=== PATIENT | female | born 1960 | race Caucasian/White ===

== ENCOUNTER → 2016-09-21 | Outpatient (REF) | payer OTHER, BC ==
[2016-09-21 14:17] LABS: ALBUMIN/GLOBULIN RATIO 1.33 (1.00-1.93); ALKALINE PHOSPHATASE 90 U/L (45-117); ALT/SGPT 23 U/L (12-78); ANION GAP 7 MEQ/L (8-16); AST/SGOT 24 U/L (15-37); BILIRUBIN,TOTAL 0.4 MG/DL (0.2-1.0); BLOOD UREA NITROGEN 13 MG/DL (7-18); CALCIUM LEVEL 8.8 MG/DL (8.5-10.1); CARBON DIOXIDE LEVEL 29 MEQ/L (21-32); CHLORIDE LEVEL 107 MEQ/L (98-107); CHOLESTEROL LEVEL 181 MG/DL (<200); CREATININE FOR GFR 0.75 MG/DL (0.55-1.02); GLOMERULAR FILTRATION RATE > 60.0 (>51); GLUCOSE, FASTING 84 MG/DL (70-105); POTASSIUM SERUM 4.2 MEQ/L (3.5-5.1); SODIUM LEVEL 143 MEQ/L (136-145); TRIGLYCERIDES LEVEL 63 MG/DL (<150)
== END ==
LOC: M LABDRAW1 13:30
PROVIDERS: ATTEND Family Medicine
DX: Z13.1 Encounter for screening for diabetes mellitus (principal); Z13.220 Encounter for screening for lipoid disorders

== ENCOUNTER → 2016-12-26 | Outpatient (CLI) | payer BC ==
--- NOTE | 2017-01-15 01:53 | ECWPNPC ---
PATIENT NAME: ORACIO CHAPA : 1960 GENDER: FEMALE VISIT DATE: 12/26/2016 DISCHARGE DATE: 12/26/16 1311 VISIT LOCKED DATE TIME: PHYSICIAN: JAVIER VALDES RESOURCE: JAVIER VALDES REASON FOR APPOINTMENT 1. CHEST WALL HISTORY OF PRESENT ILLNESS NEW PATIENT CONSULT: WHEN DID YOUR PAIN FIRST START? . BRIEFLY DESCRIBE HOW YOUR PAIN STARTED? . HOW DOES YOUR PAIN CHANGE WITH TIME? . DOES YOUR PAIN AWAKEN YOU FROM SLEEP? . HOW MANY HOURS OF SLEEP DO YOU NORMALLY GET? . ANY DIAGNOSTIC TESTING? . FACILITY WHERE TESTS WERE DONE? ____. PAIN TREATMENT TREATMENT YES CANCER HAVE YOU EVER HAD ANY TYPE OF CANCER?NO NO. PAIN SCREENING: PATIENT HAS A COMPLAINT OF ACUTE OR CHRONIC PAIN :YES FALL RISK SCREENING: SCREENING :NO FALLS IN THE PAST YEAR WHITING INVENTORY: QUESTIONNAIRE ASSESSEDYES SCORE VALUE CALCULATED YES SCORE: 18/63. DENIES SUICIDAL OR HOMICIDAL IDEATION TODAY'S VISIT: NOTES: REFERRED BY DR DUNAWAY FOR FURTHER EVAL OF LEFTCHEST WALL AND LOWER EXTREMITY PAIN. HAD SUDDEN ONSET OF PAIN IN LEFT LOWER MARGIN OF RIBS AND THIS HAS SPEAD TO LEFT FLANK AND NOW TO RIGHT HIP AND LEGHAS SENSATION OF TINGLING IN LEFT FOOT AND BALL OF FOOT UNDER GREAT TOE. NO RECENT TRAUMA BUT HAVE FALL YEARS AGO. MOVEMENT COUGHING AGGGREVATES PAIN. CAN PUSH ON AREA WITHOUT PAIN.PAIN IN HIP/SACRUM ALSO AGGREVATED HIP AND LEG PAIN THIS BEGAN FEW MONTHS AGO. SLEEP IS DISRUPTED WITH PAIN FROM MOVEMENT. STAYING ABSOLUTELY STILL WITH HEATING PAD HELPS. HAS HAD NO IMAGING OF SPINE . NO PT. NO ISSUES WITH BOWELS OR BLADDER. . CURRENT MEDICATIONS TAKING NABUMETONE 750 MG TABLET 1 TABLET ORALLY TWICE A DAY TAKING OMEPRAZOLE 20 MG CAPSULE DELAYED RELEASE 1 CAP ORALLY ONCE A DAY TAKING ZYRTEC 10 MG TABLET 1 TABLET ORALLY ONCE A DAY NEEDED DISCONTINUED OCUFLOX 0.3 % SOLUTION 1 DROP INTO AFFECTED EYE OPHTHALMIC FOUR TIMES A DAY DISCONTINUED FLUTICASONE PROPIONATE 50 MCG/ACT SUSPENSION 2 SPRAYS IN EACH NOSTRIL NASALLY ONCE A DAY DISCONTINUED AUGMENTIN 875-125 MG TABLET 1 TABLET ORALLY EVERY 12 HRS DISCONTINUED ALEVE 220 MG TABLET 1 TABLET NEEDED ORALLY EVERY 12 HRS MEDICATION LIST REVIEWED AND RECONCILED WITH THE PATIENT PAST MEDICAL HISTORY OSTEOARTHRITIS ACID REFLUX LEFT PROTRUDING LOWER RIB ALLERGIES N.K.D.A. SURGICAL HISTORY 1983 RIGHT BREAST LUMPECTOMY - BENIGN 2004 TUBAL LIGATION 2005 PARTIAL HYSTERECTOMY 2006 FAMILY HISTORY FATHER: ALIVE 82 YRS MOTHER: , BREAST CANCER SIBLINGS: ALIVE SON(S): ALIVE DAUGHTER(S): ALIVE 1 BROTHER(S) , 3 SISTER(S) - HEALTHY. 2 SON(S) , 1 DAUGHTER(S) - HEALTHY. SOCIAL HISTORY GENERAL: TOBACCO USE ARE YOU A:CURRENT SMOKER HOW MANY CIGARETTES A DAY DO YOU SMOKE?5 OR LESS PATIENT COUNSELED ON THE DANGERS OF TOBACCO USE AND URGED TO QUIT:12/26/2016 ARE YOU INTERESTED IN QUITTING?READY TO QUIT COUNSELED THE PATIENT ON TOBACCO USE, CESSATION [id number]/26/2017 ALCOHOL SCREENING POINTS0 INTERPRETATIONNEGATIVE RECREATIONAL DRUG USE DRUG USE?YES MARIJUANA HOW OFTEN AND HOW MUCH? MONTHLY CAFFEINE CAFFEINE USE?YES HOW OFTEN AND HOW MUCH? LOTS OF TEA EVERY DAY LEARNING BARRIERS / SPECIAL NEEDS BARRIERS TO LEARNING?NO HEARING IMPAIRED?NO VISION IMPAIRED?YES : [place] READINESS TO LEARN?YES LEARNING PREFERENCES?YES SPECIAL DEVICES?NO PAIN CLINIC PFS, CLERGY, PUBLIC HEALTH REFERRALS PFS REFERRAL NEEDED?NO CLERGY REFERRAL NEEDED?NO PUBLIC HEALTH REFERRAL NEEDED?NO WAS THE PROVIDER NOTIFIED OF ANY PERTINENT INFO?NO PATIENT: ____. ADVANCED DIRECTIVES HEALTH CARE PROXY?NO WOULD YOU LIKE MORE INFORMATION?NO HOSPITALIZATION/MAJOR DIAGNOSTIC PROCEDURE DENIES PAST HOSPITALIZATION REVIEW OF SYSTEMS CONSTITUTIONAL: ANY CHANGE IN YOUR MEDICAL CONDITION? NO . CHILLS NO . FEVER NO . INFECTION: DO YOU HAVE NEW INFECTIONS? NO . DO YOU HAVE HISTORY OF MRSA? NO . MUSCULOSKELETAL: ANY NEW PATTERNS OF PAIN OR NUMBNESS? NO . SYTEMIC LUPUS NO . GASTROENTEROLOGY: ANY NEW CHANGE IN BOWEL CONTROL? NO . BARRETTS ESOPHAGUS NO . CIRRHOSIS NO . HEPATITIS NO . LIVER FAILURE NO . ACID REFLUX YES, ON MEDICATION . UNEXPLAINED WEIGHT LOSS NO . GENITOURINARY: ANY NEW CHANGE IN BLADDER CONTROL? NO . IS THERE A CHANCE YOU COULD BE ? NO . HEMATOLOGY/LYMPH: DO YOU TAKE ANY BLOOD THINNERS? (FOR EXAMPLE- COUMADIN, PLAVIX, AGGRENOX, PLATEL, PRADAXA, OR XARELTO) NO . WHEN WAS YOUR LAST DOSE? DATE: TIME: . LOW PLATELET COUNT NO . SICKLE CELL DISEASE NO . VON WILLIEBRANDS NO . FACTOR V LEIDEN NO . THALLASEMIA NO . ANEMIA NO . EASY BRUISING NO . NEUROLOGY: HAVE YOU FALLEN IN THE PAST 6 MONTHS? NO . ANY NEW EXTREMITY NUMBNESS OR WEAKNESS? YES, PINKY FINGERS FEEL COLD, AND LEFT FOOT TINGLING AT TIMES. . HEAD INJURY NO . DEMENTIA NO . CEREBRAL PALSY NO . MULTIPLE SCLEROSIS NO . DIZZINESS NO . HEADACHE NO . STROKES NO . VERTIGO NO . CARDIOLOGY: DO YOU HAVE A PACEMAKER OR DEFIBRILLATOR? NO . ANGINA NO . HEART ATTACK NO . HEART SURGERY NO . CONGESTIVE HEART FAILURE/FLUID OVERLOAD NO . CHEST PAIN NO . HIGH BLOOD PRESSURE NO . IRREGULAR HEART BEAT OCCASIONAL PALP . RESPIRATORY: HAVE YOU BEEN SICK IN THE PAST WEEK? NO . FEVER NO . FLU LIKE SYMPTOMS? NO . CPAP NO . BYPAP NO . ASTHMA NO . EMPHYSEMA NO . CHRONIC LUNG DISEASES NO . SHORTNESS OF BREATH ON EXERTION NO . DO YOU USE ANY TYPE OF TOBACCO (SMOKE, SMOKELESS, CHEW)? YES, IS TRYING TO QUIT. . GENERAL SMALL LESION RIGHT LUNG - TO FOLLOW UP WITH DR GRIER . COUGH INTERMITTANT COUGH. . SNORING NO . INTEGUMENTARY: DO YOU HAVE ANY RASHES OR OPEN SORES? NO . ALLERGIC/IMMUNO: ARE YOU ALLERGIC TO SHELLFISH OR IV DYE? NO . ANY NEW ALLERGIES? NO . PSYCHIATRIC: DO YOU HAVE THOUGHTS OF HURTING YOURSELF OR SOMEONE ELSE? NO . ARE YOU ABUSED, NEGLECTED, OR IN AN UNSAFE ENVIRONMENT? NO . ENDOCRINOLOGY: ARE YOU DIABETIC? NO . THYROID DISORDER NO . OTHER: DO YOU NEED ANY PRESCRIPTIONS? NO . IF YES, PLEASE LIST: ____ . ANY NEW PROBLEMS WITH YOUR MEDICATIONS? NO . WHEN DID YOU LAST EAT? ____ . WHEN DID YOU LAST DRINK? ____ . WHAT DID YOU LAST DRINK? ____ . NAME OF PERSON DRIVING YOU HOME? ____ . DO YOU HAVE ANY OTHER QUESTIONS OR CONCERNS NO . REVIEWED BY: PROVIDER: JAVIER JUAN . VITAL SIGNS WT 112 LBS, HT 63 IN, BMI 19.84 INDEX, BP 133/60 MM HG, HR 62 /MIN, RR 16 /MIN, TEMP 98.3 F, OXYGEN SAT % 97%, NA INITIALS SC 11:42, REVIEWED BY: CM. EXAMINATION GENERAL EXAMINATION: GENERAL APPEARANCE:THIN, PALE. PSYCHALERT , ORIENTED X 3 , APPROPRIATE MOOD AND AFFECT . HEENT:NORMOCEPHALIC, NO LYMPHADENOPATHY, NO THYROMEGLY. CHEST:MINIMAL TENDER OVER LEFT 8TH AND 9TH RIBS FROM SPINE TO STERNUM. = NO RASH/LESIONS. FULL REPIRATORY EXCURSION. LUNGS:CLEAR TO AUSCULTATION BILATERALLY, NO WHEEZES, RALES OR RHONCHI. HEART:HEART RATE REGULAR, NO CAROTOD BRUIT, NORMAL S1S2, NO MURMURS, CLICK OR RUBS. MUSCULOSKELETAL:MUSCLE STRENGTH TESTING 5/5 BILATERAL UPPER AND LOWER EXTREMITIES. POSTURE UPRIGHT. GAIT NON ATALGIC. 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 WITHOUT [id number] [facility] MRI SPINE,THORACIC WITHOUT [id number] NOTES: WILL BE DOING IMAGING OF THORACIC AND LUMBAR SPINE - NEED TO CHECK WITH RADIOLOGY ABOUT ESSURE DEVICE. START PHYSICAL THERAPYTRIAL INVERSION TABLE GO SLOW. TRIAL ICE TO PAINFUL AREAS OF CHEST WALL/SPINE FOR 10-15 MINUTES. OK TO USE USUAL MEDS AND HEAT. CLINICAL NOTES: WE ARE REQUESTING AUTHORIZATION FOR THORACIC AND LUMBAR MRI S WITHOUT CONTTRAST. PT HAS BEEN SUFFERING WITH LEFT RIB PAIN/THORACIC RADICULOPATHY AND NOW PAIN RADIATING FROM LOW BACK TO BUTTUCK AND LEFT FOOT WITH NUMBNESS AND WEAKNESS DISTALLY IN FOOT. SHE HAS BEEN ON NUMEROUS NSAIDS AT THE DIRECTION OF HER PRIMARY CARE PROVIDER FOR MORE THAN 90 DAYS. SHE HAS BEEN TRIALED ON MUSCLES RELAXERS INCLUDING FLEXERIL WITH NO IMPROVEMENT. SHE IS STARTING PHYSICAL THERAPY. 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 WITHOUT [id number] THORACIC RADICULOPATHY [facility] MRI SPINE, L.S. WITHOUT [id number] [facility] SPINE,THORACIC WITHOUT [id number] LUMBAR RADICULOPATHY [facility] MRI SPINE, L.S. WITHOUT [id number] [facility] MRI SPINE,THORACIC WITHOUT [id number] DISPOSITION & COMMUNICATION FOLLOW UP 1 WEEK AFTER IMAGING STUDY DONE, 6 WEEKS ELECTRONICALLY SIGNED BY KRISTI FAIR ON 01/14/2017 AT 01:57 PM EDT DISCLAIMER : THIS IS A VISIT SUMMARY EXTRACTED FROM THE [email or web address] CHART. IT IS NOT A COPY OF THE [email or web address] PROGRESS NOTE. AURORA
== END ==
LOC: M PAIN 11:20
PROVIDERS: ATTEND Nurse Practitioner Family
DX: R07.81 Pleurodynia (principal); M41.50 Other secondary scoliosis, site unspecified; M54.14 Radiculopathy, thoracic region; M54.16 Radiculopathy, lumbar region; F17.200 Nicotine dependence, unspecified, uncomplicated; Z79.899 Other long term (current) drug therapy

== ENCOUNTER → 2017-02-11 | Outpatient (CLI) | payer BC ==
--- NOTE | 2017-03-02 00:10 | ECWPNPC ---
PATIENT NAME: ORACIO CHAPA : 1960 GENDER: FEMALE VISIT DATE: 02/11/2017 DISCHARGE DATE: 02/11/17 0000 VISIT LOCKED DATE TIME: PHYSICIAN: JAVIER VALDES RESOURCE: JAVIER VALDES REASON FOR APPOINTMENT 1. L RIBS HISTORY OF PRESENT ILLNESS HISTORY OF PRESENT ILLNESS: PAIN THE PATIENT DESCRIBES THE PAIN... FALL RISK SCREENING: SCREENING :NO FALLS IN THE PAST YEAR TODAY'S VISIT: NOTES: RETURNS TO CLINIC FOR CONTINUED LEFT RIB PAIN WHICH RAIATES DOWN ENTIRE LEFT SIDE. TO LEVEL OF THE ANKLE. RTES PAIN LEVEL TODAY 8/10. DESCRIBES THE PAIN CONSTANT, ACHING, TENDER, THROBBING, AND SORE. IS CURRENTLY ON NABUMETONE TIMES GREATER THAN 6 WEEKS WITH MINIMAL TO NO EFFECT. PHYSICAL THERAPY HAS BEEN VERY PAINFUL AND SHE IS SEEING LITTLE TO NO IMPROVEMENT. HAS ACHING THROBBING IN LOW BACK AND PELVIS WITH STANDING AND WALKING. HAS WEAKNESS IN LEFY LEG AND DIFF GOING UP STEPS. HAS N/T IN LEFT LEG TO FOOT. . CURRENT MEDICATIONS TAKING OMEPRAZOLE 20 MG CAPSULE DELAYED RELEASE 1 CAP ORALLY ONCE A DAY TAKING NABUMETONE 750 MG TABLET 1 TABLET ORALLY TWICE A DAY TAKING CLARITIN 10 MG TABLET 1 TABLET ORALLY ONCE A DAY NOT-TAKING ZYRTEC 10 MG TABLET 1 TABLET ORALLY ONCE A DAY NEEDED NOT-TAKING SUDAFED 30 MG TABLET 1 TABLET NEEDED ORALLY THREE TIMES DAILY MEDICATION LIST REVIEWED AND RECONCILED WITH THE PATIENT PAST MEDICAL HISTORY OSTEOARTHRITIS ACID REFLUX LEFT PROTRUDING LOWER RIB ALLERGIES N.K.D.A. REVIEW OF SYSTEMS REVIEWED BY: PROVIDER: JAVIER VALDES PHOTOGRAPHY AND PRINTS CURATOR . CONSTITUTIONAL: ANY CHANGE IN YOUR MEDICAL CONDITION? NO . CHILLS NO . FEVER NO . INFECTION: DO YOU HAVE NEW INFECTIONS? NO . DO YOU HAVE HISTORY OF MRSA? NO . MUSCULOSKELETAL: ANY NEW PATTERNS OF PAIN OR NUMBNESS? NO . GASTROENTEROLOGY: ANY NEW CHANGE IN BOWEL CONTROL? NO . GENITOURINARY: ANY NEW CHANGE IN BLADDER CONTROL? NO . IS THERE A CHANCE YOU COULD BE ? NO . HEMATOLOGY/LYMPH: DO YOU TAKE ANY BLOOD THINNERS? (FOR EXAMPLE- COUMADIN, PLAVIX, AGGRENOX, PLATEL, PRADAXA, OR XARELTO) NO . WHEN WAS YOUR LAST DOSE? DATE: TIME: . NEUROLOGY: HAVE YOU FALLEN IN THE PAST 6 MONTHS? NO . ANY NEW EXTREMITY NUMBNESS OR WEAKNESS? NO . CARDIOLOGY: DO YOU HAVE A PACEMAKER OR DEFIBRILLATOR? NO . RESPIRATORY: HAVE YOU BEEN SICK IN THE PAST WEEK? NO . FEVER NO . FLU LIKE SYMPTOMS? NO . COUGH NO . INTEGUMENTARY: DO YOU HAVE ANY RASHES OR OPEN SORES? NO . ALLERGIC/IMMUNO: ARE YOU ALLERGIC TO SHELLFISH OR IV DYE? NO . ANY NEW ALLERGIES? NO . PSYCHIATRIC: DO YOU HAVE THOUGHTS OF HURTING YOURSELF OR SOMEONE ELSE? NO . ARE YOU ABUSED, NEGLECTED, OR IN AN UNSAFE ENVIRONMENT? NO . ENDOCRINOLOGY: ARE YOU DIABETIC? NO . OTHER: DO YOU NEED ANY PRESCRIPTIONS? NO . IF YES, PLEASE LIST: ____ . ANY NEW PROBLEMS WITH YOUR MEDICATIONS? NO . WHEN DID YOU LAST EAT? ____ . WHEN DID YOU LAST DRINK? ____ . WHAT DID YOU LAST DRINK? ____ . NAME OF PERSON DRIVING YOU HOME? ____ . DO YOU HAVE ANY OTHER QUESTIONS OR CONCERNS NO . VITAL SIGNS WT 111.8 LBS, HT 63 IN, BMI 19.80 INDEX, BP 110/66 MM HG, HR 63 /MIN, RR 18 /MIN, TEMP 97.5 F, OXYGEN SAT % 99%, SAFE IN ENV? (Y/N) YES, NA INITIALS PA 09:47, REVIEWED BY: LIONEL. EXAMINATION GENERAL EXAMINATION: PSYCHALERT , ORIENTED X 3 , APPROPRIATE MOOD AND AFFECT . LUNGS:CLEAR TO AUSCULTATION BILATERALLY. HEART:HEART RATE REGULAR. MUSCULOSKELETAL:POINT TENDERNESS OVER THORACIC SPINOUS PROCESSES AND OVER 9-11TH INTER COSTAL SPACES. POINT TENDERNESS OVER LEFT SIJ AND ACROSS LUMBOSACRAL AXIS, LEFT > RIGHT. MUSCLE STRENGTH TESTING 5/5 BILATERAL UPPER AND LOWER EXTREMITIES, GAIT NONANTALGIC. 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 CLINICAL NOTES: WILL REQUEST AGAIN AUTH FOR THORACIC AND LUMBAR MRI TO FURTHER EVAL FOR THORACIC AND LUMBAR NERVE ROOT COMPRESSION LEFT SIDE, PROB DUE TO SCOLIOSIS AND DEGENERATIVE CHANGES. ONCE THIS IS AVAILABLE WILL BE MOVING WITH INTERVENTIONAL TREAT,MENT - THORACIC INCOSTAL BLOCK, AND LUMBAR EPIDURAL INJECTION TREATMENT. PROCEDURE CODES FA211 ESTABILISHED PATIENT LOCATED WITHIN [facility] CHARGE DISPOSITION & COMMUNICATION FOLLOW UP 1 WEEK AFTER MRI (REASON: THORACIC AND BACK PAIN) ELECTRONICALLY SIGNED BY KRISTI FAIR ON 03/01/2017 AT 08:25 AM EDT DISCLAIMER : THIS IS A VISIT SUMMARY EXTRACTED FROM THE [employer] CHART. IT IS NOT A COPY OF THE [employer] PROGRESS NOTE. [facility]UR[facility]
== END ==
LOC: M PAIN 09:20
PROVIDERS: ATTEND Nurse Practitioner Family
DX: R07.81 Pleurodynia (principal); M41.50 Other secondary scoliosis, site unspecified; M54.14 Radiculopathy, thoracic region; M54.16 Radiculopathy, lumbar region; Z79.899 Other long term (current) drug therapy

== ENCOUNTER → 2017-10-04 | Outpatient (REF) | payer BC ==
[2017-10-04 15:10] LABS: INFLUENZA A AMPLIFICATION NEGATIVE (NEGATIVE); INFLUENZA B AMPLIFICATION NEGATIVE (NEGATIVE)
== END ==
LOC: M LAB REF 13:52
DX: J01.00 Acute maxillary sinusitis, unspecified (principal)
CPT/HCPCS: 87502

== ENCOUNTER → 2017-11-15 | Outpatient (REF) | payer BC ==
[2017-11-15 10:47] LABS: BASO # 0.1 10^3/uL (0.0-0.2); BASO % 1.1 % (0.0-1.0); EOS # 0.3 10^3/uL (0.0-0.50); HEMATOCRIT 39.6 % (36.0-47.0); HEMOGLOBIN 13.5 g/dl (12.0-16.0); IMMATURE GRANULOCYTE % 0.4 % (0-3.0); LYMPH # 3.5 10^3/uL (1.5-4.5); LYMPH % 49.1 % (24.0-44.0); MEAN CORPUSCULAR HGB CONC 34.1 g/dl (32.0-36.5); MEAN CORPUSCULAR VOLUME 96.8 fl (80.0-96.0); MONO # 0.4 10^3/uL (0.0-0.8); MONO % 5.6 % (0.0-5.0); NEUTROPHILS # 2.9 10^3/uL (1.8-7.7); NEUTROPHILS % 39.8 % (36.0-66.0); PLATELET COUNT, AUTOMATED 191 10^3/uL (150-450); RED BLOOD COUNT 4.09 10^6/uL (4.00-5.40); RED CELL DISTRIBUTION WIDTH 12.1 % (11.5-14.5); WHITE BLOOD COUNT 7.2 10^3/uL (4.0-10.0)
[2017-11-15 11:01] LABS: ALBUMIN 3.8 GM/DL (3.2-5.2); ALBUMIN/GLOBULIN RATIO 1.41 (1.00-1.93); ALKALINE PHOSPHATASE 108 U/L (45-117); ALT/SGPT 17 U/L (12-78); ANION GAP 5 MEQ/L (8-16); AST/SGOT 12 U/L (7-37); BILIRUBIN,TOTAL 0.4 MG/DL (0.2-1.0); BLOOD UREA NITROGEN 11 MG/DL (7-18); CALCIUM LEVEL 8.4 MG/DL (8.5-10.1); CARBON DIOXIDE LEVEL 30 MEQ/L (21-32); CHLORIDE LEVEL 109 MEQ/L (98-107); CHOLESTEROL LEVEL 142 MG/DL (<200); CHOLESTEROL RISK RATIO 2.535 (<5); CREATININE FOR GFR 0.73 MG/DL (0.55-1.30); FREE T4 0.73 NG/DL (0.76-1.46); GLOMERULAR FILTRATION RATE > 60.0 (>51); GLUCOSE, FASTING 86 MG/DL (70-100); HDL CHOLESTEROL 56 MG/DL (>40); LDL CHOLESTEROL 74.6 MG/DL (<100); NON-HDL-C 86 MG/DL; POTASSIUM SERUM 4.4 MEQ/L (3.5-5.1); SODIUM LEVEL 144 MEQ/L (136-145); THYROID STIMULATING HORMONE 0.677 uIU/ML (0.358-3.740); TOTAL PROTEIN 6.5 GM/DL (6.4-8.2); TRIGLYCERIDES LEVEL 57 MG/DL (<150)
== END ==
LOC: M LABDRAW1 08:06
DX: Z13.29 Encounter for screening for other suspected endocrine disorder (principal); Z13.0 Encounter for screening for diseases of the blood and blood-forming organs and certain disorders involving the immune mechanism; Z13.220 Encounter for screening for lipoid disorders
CPT/HCPCS: 84443

== ENCOUNTER → 2018-01-14 | Outpatient (CLI) | payer BC ==
[2018-01-14 13:40] LABS: CONTROL LINE MONO INT CTR LINE PRESENT; MONO SCRN NEGATIVE (NEGATIVE)
[2018-01-14 13:41] LABS: BASO # 0.1 10^3/uL (0.0-0.2); BASO % 0.7 % (0.0-1.0); EOS # 0.2 10^3/uL (0.0-0.50); EOS % 1.6 % (0.0-3.0); HEMATOCRIT 44.7 % (36.0-47.0); HEMOGLOBIN 15.2 g/dl (12.0-15.5); IMMATURE GRANULOCYTE % 0.3 % (0-3.0); LYMPH # 3.9 10^3/uL (1.5-4.5); LYMPH % 38.7 % (24.0-44.0); MEAN CORPUSCULAR HEMOGLOBIN 32.8 pg (27.0-33.0); MEAN CORPUSCULAR VOLUME 96.3 fl (80.0-96.0); MONO # 0.4 10^3/uL (0.0-0.8); MONO % 4.3 % (0.0-5.0); NEUTROPHILS # 5.6 10^3/uL (1.8-7.7); NEUTROPHILS % 54.4 % (36.0-66.0); PLATELET COUNT, AUTOMATED 211 10^3/uL (150-450); RED BLOOD COUNT 4.64 10^6/uL (4.00-5.40); RED CELL DISTRIBUTION WIDTH 12.2 % (11.5-14.5); WHITE BLOOD COUNT 10.2 10^3/uL (4.0-10.0)
[2018-01-14 13:53] LABS: ALBUMIN 4.5 GM/DL (3.2-5.2); ALBUMIN/GLOBULIN RATIO 1.41 (1.00-1.93); ALKALINE PHOSPHATASE 114 U/L (45-117); ALT/SGPT 22 U/L (12-78); ANION GAP 7 MEQ/L (8-16); AST/SGOT 21 U/L (7-37); BILIRUBIN,TOTAL 0.6 MG/DL (0.2-1.0); BLOOD UREA NITROGEN 6 MG/DL (7-18); CALCIUM LEVEL 9.5 MG/DL (8.5-10.1); CARBON DIOXIDE LEVEL 27 MEQ/L (21-32); CHLORIDE LEVEL 109 MEQ/L (98-107); CREATININE FOR GFR 0.75 MG/DL (0.55-1.30); GLOMERULAR FILTRATION RATE > 60.0 (>51); GLUCOSE, FASTING 94 MG/DL (70-100); POTASSIUM SERUM 4.1 MEQ/L (3.5-5.1); SODIUM LEVEL 143 MEQ/L (136-145); TOTAL PROTEIN 7.7 GM/DL (6.4-8.2)
[2018-01-16 00:08] LABS: Lyme Disease IgG/IgM Antibodie <0.91 ISR (0.00-0.90); Lyme Disease IgM Ab Quantitati <0.80 index (0.00-0.79)
== END ==
LOC: M SMT 10:12
DX: R53.83 Other fatigue (principal)
CPT/HCPCS: 80053

== ENCOUNTER → 2018-12-30 | Outpatient (CLI) | payer BC ==
--- NOTE | 2019-01-01 14:46 | REP ---
REASON: Followup single pulmonary nodule. COMPARISON: 05/02/2016 After he intravenous administration of 9.4 millicuries of FDG18, triplane, whole body PET/CT was performed from the skull base to the mid thigh. Comparison chest CT low dose screening CT of 11/06/2018 was also reviewed. The 1 cm sized nodule seen in the right lung upper lobe shows no evidence of abnormal hypermetabolic activity. The maximal SUV value of this nodule is 1.4. There is no abnormal hypermetabolic activity seen in the neck, chest, abdomen, or pelvis. IMPRESSION: No abnormal hypermetabolic activity. Negative CT/PET. Electronically Signed by Lele Khalil DO 01/01/2019 06:56 P
== END ==
LOC: M PLARAD 08:22
PROVIDERS: ATTEND Internal Medicine Pulmonary Disease
DX: R91.1 Solitary pulmonary nodule (principal)
CPT/HCPCS: 78815; A9552

== ENCOUNTER → 2020-06-08 | Outpatient (CLI) | payer OTHER ==
--- NOTE | 2020-06-13 14:09 | REP ---
CT CHEST WITHOUT CONTRAST HISTORY: Solitary pulmonary nodule. COMPARISON: Chest CT studies include the most recent prior study of 02/11/2020 and the most remote, which is dated 03/13/2016. CT studies have shown a gradually enlarging part solid right middle lobe nodule. CT FINDINGS: The previously noted part solid, part non-solid, spiculated nodule in the right middle lobe is again seen. This is actually best displayed on sagittal multiplanar reformation images where it demonstrates a maximum diameter in the anteroposterior dimension of 1.7 cm. it is abutting the minor fissure along its superior border. It contains air bronchograms and is felt to be suggestive of an adenocarcinoma. There is linear fibrosis in the left base. No other pulmonary nodule is appreciated. No endobronchial abnormality is observed. There are stable normal appearing mediastinal lymph nodes. Mild vascular calcification is observed. No pleural or pericardial effusion is seen. No adrenal mass lesion is observed. The visualized upper abdominal structures are unremarkable. No bony destructive lesion. IMPRESSION: 17 mm somewhat spiculated part solid right middle lobe nodule is again seen having gradually enlarged since the 2016 prior study. MTDD
== END ==
LOC: M RAD 06:52
PROVIDERS: ATTEND Internal Medicine Pulmonary Disease
DX: R91.1 Solitary pulmonary nodule (principal)

== ENCOUNTER → 2020-08-16 | Outpatient (CLI) | payer OTHER ==
--- NOTE | 2020-08-17 07:47 | REP ---
INDICATION: DIAGNOSING LUNG NODULE R91.1. COMPARISON: Comparison PET-CT studies are from December 30, 2018 and May 02, 2016.. Comparison CT study of the chest is from June 08, 2020. TECHNIQUE: Sixty minutes following the intravenous injection of a 8.83 mCi dose of F-18 FDG, three-dimensional PET scintigraphy is acquired from the skull base to the proximal thighs. Triplanar noncontrast CT scanning is acquired through the same anatomic range for attenuation correction, and image registration with scan parameters optimized to minimize radiation exposure to the patient. PET scintigraphy and CT datasets were fused and displayed on a workstation with multiplanar and projection display capability. FINDINGS: In the head and neck soft tissues, there are multiple foci of normal variant metabolically active fatty tissue in the supraclavicular, axillary, and posterior and superior intercostal regions bilaterally and symmetrically. This brown fat activity is normal variant. There is no evidence of adenopathy or pathologic focus of metabolic activity in the head and neck. The right middle lobe nodule which has been gradually enlarging is again seen. It is more metabolically active, now mildly hypermetabolic. Its maximum standard uptake value is 3.58 today. 8.8 on the December 30, 2018 PET-CT study the SUV was 1.39 and on the May 02, 2016 prior PET-CT study the SUV was 0.7. No other abnormal hypermetabolic uptake is seen in the thorax. No hilar or mediastinal hypermetabolic focus is seen. There is no abnormal adrenal uptake. Normal hepatic, splenic, gastrointestinal, and genitourinary FDG accumulation is seen in the abdomen and pelvis. There is a calcified mesenteric lymph node in the right lower quadrant. No abnormal hypermetabolic uptake is seen in the abdomen or pelvis. IMPRESSION: Right middle lobe nodule is now hypermetabolic, SUV 3.58. It has gradually enlarged and is considered suspicious. <Electronically signed by Tj Borrego > 08/17/20 [id number]
== END ==
LOC: M PLARAD 08:15
PROVIDERS: ATTEND Internal Medicine Pulmonary Disease
DX: R91.8 Other nonspecific abnormal finding of lung field (principal)
CPT/HCPCS: 78815; A9552

== ENCOUNTER → 2020-09-09 | Outpatient (CLI) | payer OTHER ==
--- NOTE | 2020-09-09 09:16 | REP ---
INDICATION: SOLITARY PULMONARY NODULE COMPARISON: 06/08/2020, 03/18/2017 TECHNIQUE: Axial noncontrast images from the thoracic inlet to the upper abdomen with coronal and sagittal reformations. This CT examination was performed using the following dose reduction techniques: Automated exposure control, adjustment of mA and/or kv according to the patient's size, and use of iterative reconstruction technique. FINDINGS: Part solid spiculated lesion in the right middle lobe measuring approximately 20 x 10 x 6 mm is essentially unchanged from most recent prior examination although obviously increased in size when compared to 03/21/2017. Remainder of lung johnson are well aerated and without consolidation or further significant nodule/mass lesion. No pleural effusion. No pneumothorax. Tracheobronchial tree is patent. Mildly prominent mediastinal and precarinal lymph nodes are identified which appear relatively stable through 717 although evaluation is limited by the lack of intravenous contrast enhancement. Further evaluation of the mediastinum demonstrates mild atherosclerotic changes to the thoracic aorta and coronary arteries without aortic aneurysm or cardiomegaly. No pericardial effusion. Surrounding musculoskeletal structures without acute osseous abnormality. Limited upper abdomen demonstrates normal adrenal glands. IMPRESSION: The right middle lobe part solid lesion with mild surrounding spiculation is relatively unchanged compared to most recent prior examination but has obviously increased from 03/21/2017. No further mediastinal or pleuroparenchymal process or abnormality identified. <Electronically signed by Stalin Orozco > 09/09/20 [id number]
== END ==
LOC: M RAD 07:58
PROVIDERS: ATTEND Internal Medicine Pulmonary Disease
DX: R91.8 Other nonspecific abnormal finding of lung field (principal); I70.0 Atherosclerosis of aorta; I25.10 Atherosclerotic heart disease of native coronary artery without angina pectoris

== ENCOUNTER → 2020-09-21 | Outpatient (CLI) | payer OTHER ==
[~2020-09-21] MED LIST: APAP325T4 PO; THERTAB52 PO
--- NOTE | 2020-09-21 15:18 | ECGEPIP ---
[facility] Test Date: 2020-09-21 Pat Name: ORACIO CHAPA Department: Room: - Gender: Female Statistical Modeler: CRISTAL : 1960 Requested By: STACEY Ryder Order Number: [id number] Reading MD: Kristin Burciaga Measurements Intervals [place] Rate: 66 P: 53 KS: 148 QRS: 98 QRSD: 94 T: 42 QT: 395 QTc: 417 Interpretive Statements SINUS RHYTHM RATE FASTER RIGHT AXIS DEVIATION LPHB INCOMPLETE RIGHT BUNDLE BRANCH BLOCK LEFT aTRIAL ENLARGEMENT ON PRIOR C/W 02/21/15 Electronically Signed on 09-21-2020 15:18:35 EST by Kristin Burciaga
== END ==
LOC: M EKG 11:04
PROVIDERS: ATTEND Anesthesiology
DX: Z01.818 Encounter for other preprocedural examination (principal)

== ENCOUNTER → 2020-09-21 | Outpatient (CLI) | payer OTHER | LOC: M LABSMTC 11:49 | PROVIDERS: ATTEND Anesthesiology | DX: Z01.812 Encounter for preprocedural laboratory examination (principal); Z20.822 Contact with and (suspected) exposure to COVID-19 ==

== ENCOUNTER 2020-09-26 06:10 | Day surgery (SDC) | payer OTHER ==
[~2020-09-26] VITALS: Ht 160 cm; Wt 46.6 kg
[2020-09-26] MEDS ORDERED: EPINEPHrine 1MG/10ML SYRINGE 1.5IN As Ordered ONE (07:07)
[2020-09-26] MEDS ORDERED: CETACAINE SPRAY 5GM As Ordered ONE (07:07)
[2020-09-26] MEDS ORDERED: LIDOCAINE 1% MDV 20ML VIAL As Ordered ONE (07:07)
[2020-09-26] MEDS ORDERED: THROMBIN SOLN 5,000 UNITS VIAL As Ordered ONE (07:07)
[2020-09-26] MEDS ORDERED: LIDOCAINE 4% INJ 5ML AMP As Ordered ONE (07:19)
[2020-09-26] MEDS ORDERED: ALBUTEROL SULFATE 2.5 MG/0.5 ML INH NEB SOLN As Ordered ONE (07:20)
[2020-09-26] MEDS ORDERED: ALBUTEROL SULFATE 2.5 MG/0.5 ML INH NEB SOLN INH ONE (07:45)
[2020-09-26] MEDS ORDERED: LIDOCAINE 4% INJ 5ML AMP INH ONE (07:45)
[2020-09-26] MEDS ORDERED: propofoL 200 MG/20 ML VIAL As Ordered ONE (07:51)
[2020-09-26] MEDS ORDERED: ONDANSETRON 4MG/2ML VIAL As Ordered ONE ×2 (07:51→09:20)
[2020-09-26] MEDS ORDERED: LIDOCAINE 2% 100MG/5ML SDV (FOR ANES.) As Ordered ONE (07:51)
[2020-09-26] MEDS ORDERED: dexameTHASONE 4 MG/ML 1ML VIAL (J1100 PER 1MG) As Ordered ONE (07:51)
[2020-09-26] MEDS ORDERED: ROCURONIUM BROMIDE 50 MG/5 ML VIAL As Ordered ONE (07:51)
[2020-09-26] MEDS ORDERED: fentaNYL 100 MCG/2 ML INJECTION (J3010) As Ordered ONE ×2 (07:51→08:41)
[2020-09-26] MEDS ORDERED: MIDAZOLAM INJ 2MG/2ML VIAL (J2250 PER 1MG) As Ordered ONE (07:51)
[2020-09-26] MEDS ORDERED: SUGAMMADEX SODIUM 500 MG/5 ML VIAL (BRIDION) As Ordered ONE (08:03)
[2020-09-26] MEDS ORDERED: ACETAMINOPHEN 1000MG 100ML IV BTL (OFIRMEV) (J0131 PER 10MG) As Ordered ONE (08:04)
[2020-09-26] MEDS ORDERED: fentaNYL 100 MCG/2 ML INJECTION (J3010) IV PRN (09:30)
[2020-09-26] MEDS ORDERED: ONDANSETRON 4MG/2ML VIAL IV PRN (09:30)
[2020-09-26] MEDS ORDERED: LR 1,000 ML IV SCH (09:30)
[2020-09-26] MEDS ORDERED: oxyCODONE 5MG TAB PO PRN (09:30)
--- NOTE | 2020-09-26 09:56 | RO ---
OPERATIVE NOTE DATE OF OPERATION: 09/26/2020 PREOPERATIVE DIAGNOSIS: Right middle lobe mass. POSTOPERATIVE DIAGNOSIS: Right middle lobe mass. FINDINGS: Hypertrophy of mucous pits and 1 x 1.2 cm subcarinal lymph node. PROCEDURE PERFORMED: Fiberoptic bronchoscopy followed by robotic-assisted navigational bronchoscopy with radial ultrasound and fluoroscopic guidance for biopsies of the right middle lobe and brushing of the right middle lobe and placement of fiducial markers in right middle lobe, followed by endobronchial ultrasound bronchoscopy with needle aspirations of subcarinal lymph node. SURGEON: Tony Wilson DO, [facility] REMEDIATION TECHNICIAN: Kassandra Hein MD ANESTHESIA: DESCRIPTION OF PROCEDURE: The patient was seen and the procedure explained to the patient as well as the possible complications pertaining thereto including but not limited to bleeding, infection, medication reaction, lung collapse and informed consent was obtained. The patient was brought to the operative suite, placed under general anesthetic. When the anesthetic had sufficient time to take effect the bronchoscope was placed in through the endotracheal tube and into the trachea. The robbie was felt to be sharp. The airways of the left and right lung were examined in subsegmental fashion for any evidence of tumor, ulcer, necrosis, vessel engorgement or mucosal irregularity. There was hypertrophy of mucous pits and scattered mucous plugs appreciated. These were suctioned free and the bronchoscope was retracted out through the endotracheal tube. Thereafter, robotic-assisted navigational bronchoscopy was performed. The scope was introduced and directed using navigational imaging to the right middle lobe and thereafter to the area of interest appreciated previously in the periphery of the right middle lobe on CT imaging. The area of interest was approximated and the scope was parked. Thereafter, radial ultrasound was placed through the scope confirming abnormal density approximately 2-3 cm from the distal port of the scope. Thereafter, transbronchial brushes were obtained of this site, these were forwarded to in-room cytology for analysis. Following sufficient specimen sampling biopsy forceps was placed and multiple biopsies were obtained of the area of interest appreciated on CT imaging. When sufficient specimen had been retrieved a fiducial marker was placed at the point of sampling. Scope was slightly adjusted and a second fiducial marker was placed. Thereafter the robotic bronchoscope was removed and the areas were once again lavaged free of any secretions using standard bronchoscope. For the next portion of the procedure an endobronchial ultrasound scope was introduced and the lymph nodes on the right side were inspected. The only lymph node of significant size was that found in subcarinal, it measured approximately 1 x 1.2 cm and the scope was placed into the right main bronchus. Using ultrasound guidance multiple needle aspirations were obtained into the subcarinal lymph node. Samples were forwarded to pathology for analysis. The ultrasound scope was then removed and one last time standard bronchoscopy was performed for lavage of the airways and to remove any blood or secretions. Having done so the bronchoscope was retracted out through the endotracheal tube. The patient tolerated the procedure, suffered no apparent complications and postprocedural chest x-ray will be obtained in the recovery area. [facility]A
--- NOTE | 2020-09-26 10:02 | REP ---
INDICATION: S/P EBUS COMPARISON: None. TECHNIQUE: Portable AP view of the chest FINDINGS: The mediastinum and cardiac silhouette are stable and within normal limits for portable technique. Right lower lobe opacities suggested. No pneumothorax or pleural effusion. Surgical clips in the right mid lung zone noted. IMPRESSION: Right lower lobe opacity. Small surgical clips in the right midlung zone just below the fissure. <Electronically signed by Stalin Orozco > 09/26/20 0958
[2020-09-26] MEDS ORDERED: METOCLOPRAMIDE INJ 10MG/2ML VIAL (J2765 PER 1) As Ordered ONE (10:12)
[2020-09-26 11:00] VITALS: BP 118/56
[2020-09-26] MEDS ORDERED: METOCLOPRAMIDE INJ 10MG/2ML VIAL (J2765 PER 1) IV PRN (11:00)
== END 2020-09-26 11:00 | disposition home or self-care (01) ==
LOC: M SDC 06:10
PROVIDERS: ATTEND Internal Medicine Pulmonary Disease
DX: C34.2 Malignant neoplasm of middle lobe, bronchus or lung (principal); K21.9 Gastro-esophageal reflux disease without esophagitis; R51.9 Headache, unspecified; F17.218 Nicotine dependence, cigarettes, with other nicotine-induced disorders
CPT/HCPCS: 31623; 31626; 31627; 31628; 31652; 71045; 76000; 88104; 88173; 88305; 88342; A4648; C1887; J0131; J1100; J2250; J2405; J2765; J3010; S2900

== ENCOUNTER → 2020-10-07 | Outpatient (CLI) | payer OTHER ==
--- NOTE | 2020-10-07 15:53 | RADONC.CN ---
Radiation Oncology Hx/Consult Radiation Oncology Consult Date of Service: Oct 07, 2020 Pt Identifier Nicole Steele is a 59 year old female former smoker with an incidentally discovered, recently biopsied [id number] stage IA3 NSCLC of the RML, which had steadily grown on serial imaging studies since initial detection in 2015. She is seen today at the request of Dr. Wilson for consideration of SBRT as an alternative to lobectomy. Diagnosis/Treatment History Oncologic History Patient originally presented to her PCP with back pain in 2016 which led to a CT scan which showed a RML subcentimeter nodule. PET-CT on 05/02/16 showed this was not PET-CT avid. Continued CT surveillance was performed with Dr. Wilson following, for several years, indication very slow growth. CT chest from 02/11/20 showed interval growth to 1.6x0.8x0.8 cm. 06/08/20 CT chest was stable compared to immediate prior. 08/16/20 PET-CT showed avidity in the lesion for the first time. She underwent EBUS navigational biopsy on 09/26/20 with pathology revealing a moderately differentiated adenocarcinoma, Level 7 was sampled and negative for malignancy. She subsequently had a surgical consultation with Dr. Juares for lobectomy consideration. Her PFTs from 2017 are good: FVC 2.64 L FEV1 1.53 FEV1/FVC 73% predicted DLCO not done Interval History Nicole is here with her supportive partner. She reports she feels well overall. She has mild COTA, but this is not in any way limiting her ADLs or IADLs. She has no cough, no SOB at rest. She has no CP. She does have chronic back pain which is stable and only intermittently bothersome. Her weight is stable. She has not smoked since her bronchoscopy. She is intending to quit cold turkey. She has 3 kids. She expressed she is not interested in surgery due to possible side effects of pain, and downtime. She wishes to consider alternatives. Past Medical History: GERD Past Surgical History: Hysterectomy Family History: Mother of breast cancer Social History: 40 pack year former smoker, quit attempt in progress. Does not drink alcohol Allergies / Meds Allergies: Coded Allergies: No Known Allergies (Verified , 09/26/20) Home Meds Reported Medications Multivitamin,Therapeutic (Thera-Tabs) 1 Each Tablet, 1 TAB PO DAILY, TAB 09/15/20 Acetaminophen (Acetaminophen) 325 Mg Tablet, 325 MG PO PRN PRN for PAIN, TAB 09/15/20 Review of Systems Constitutional: Denies: Chills, Fever, Night Sweats Eyes: Denies: Pain, Vision change HEENT: Denies: Head Aches, Dysphagia, Sore Throat Skin: Denies: Rash, Lesions, Bruising Pulmonary: Reports: Dyspnea; Denies: Cough, Pleuritic Chest Pain Cardiovascular: Denies: Chest Pain, Palpitations, Edema Gastrointestinal: Denies: Nausea, Vomiting, Abdominal Pain, Diarrhea Genitourinary: Denies: Dysuria, Frequency, Incontinence Hematologic: Denies: Bruising, Petecchia, Enlarged Lymph Nodes Musculoskeletal: Denies: Neck pain, Back pain Neurological: Denies: Weakness, Numbness, Incoordination Psych: Reports: Mood Normal; Denies: Memory Issues, Thoughts of Self Harm Vital Signs Ht 63" Wt 103 lbs BMI 18 T 96.3 P 89 RR 16 BP 103/53 O2 98% Pain 3 back Fatigue 0 General Exam: Positive: Alert, Cooperative, No Acute Distress Eye Exam: Positive: PERRLA, EOMI ENT EXAM: Positive: Mucous membr. moist/pink, Pharynx Normal Neck Exam: Negative: Thyromegaly, Lymphadenopathy Chest Exam: Positive: Normal air movement; Negative: Rales, Rhonchi, Wheezing Heart Exam: Positive: Rate Normal, Regular Rhythm Breast Exam: Negative: Symmetric Bilaterally, Lumps or Masses, Nipple Retraction, Nipple Discharge, Skin Changes, Other Breast Findings Abdomen Exam: Positive: Soft; Negative: Tenderness, Mass Extremity Exam: Negative: Edema, Tenderness Skin Exam: Positive: Nl turgor and temperature; Negative: Rash Neuro Exam: Positive: Normal Gait, Normal Speech, Cranial Nerves 3-12 NL Psych Exam: Positive: Mental status NL, Mood NL, Memory Intact Diagnostic and Laboratory Diagnostic Review Radiologic images, relevant labs and pathology reports were personally reviewed and discussed with Ms. Steele. Assessment and Plan Impression Ms. Steele is a 59 year old female former smoker with an incidentally discovered, recently biopsied [id number] stage IA3 NSCLC of the RML, which had steadily grown on serial imaging studies since initial detection in 2016. She is seen today at the request of Dr. Wilson for consideration of SBRT as an alternative to lobectomy. Stage Stage IA3 [id number] NSCLC of the RML Performance Status ECOG 0 Plan We had an extensive discussion with Ms. Steele regarding the diagnosis at hand and available therapeutic options. With respect to the lesion in question it has demonstrated a slow pattern of radiologic enlargement over many years, the slow growth and development of hypermetabolism on the recent PET-CT prompted biopsy, and mediastinal jeny sampling (the latter was negative). She is very fit and has preserved PFTs. She seems an excellent candidate for lobectomy. I recommended she undergo lobectomy in no uncertain terms. This is the standard of care for stage I NSCLC in an operable patient. The comparative 5 year OS data bear this out consistently and we have no compelling [id number] trial results of lobectomy versus SBRT to alter this paradigm at this time (as a note [facility], which is comparing SBRT to lobectomy in the operable population is ongoing but unavailable outside of the [place] system). The benefit of pathologic staging, which results in upstaging (leading to more effective treatment) in non-trivial percentage of lobectomy patients, and the mitigated risk of in-lobe failure, are inherent in lobectomy, and not in SBRT. She politely declines to consider lobectomy at this time. She is concerned about the side effects and downtime associated with an operation of this magnitude. I explained that if her mind was truly made up against lobectomy, then I would offer her SBRT as an alternative. I would give her 60 Gy in 5 fractions to the lesion with DCA planing approach, and 4DCT/ITV/amplitude-gated treatment del live. I would follow her with serial CT scans. In general there are no firm indications for adjuvant treatment post-SBRT in her case. We discussed the logistics of receiving radiation therapy in detail including the need for a 1-time planning session. We reviewed the side effects of SBRT, including fatigue, 5-8% risk of symptomatic pneumonitis, and chest wall pain. After discussing the risks, benefits and alternatives to radiation therapy, Ms. Steele was amenable to pursuing radiotherapy. All questions were answered to the patient's satisfaction. As her preferences deviate from what Dr. Juares, Dr. Wilson and I recommend as standard of care for her case, I asked her to think about the matter and close the loop with her other specialists prior to proceeding. She stated she is in favor of SBRT based on the information she has been given and would contact her other physicians. We instructed the patient that if there were any questions,concerns or changes in clinical status in the interim to contact us. Recommendations Recommended lobectomy to patient, she is opposed to this Offered SBRT as an alternative, consistent with her preferences, as discussed above She will discuss with her other providers and alert us to her final decision Simulation pending final decision Total time of (36) minutes was spent preparing for the visit (4), obtaining HPI (4), examining the patient (3), reviewing diagnostic tests (7), discussing management options (8), coordinating care (3), and writing this note (7). TANA CHAVIRA MD Oct 07, 2020 15:14
== END ==
LOC: M ONCR 12:57
PROVIDERS: ATTEND General Practice
DX: C34.2 Malignant neoplasm of middle lobe, bronchus or lung (principal); K21.9 Gastro-esophageal reflux disease without esophagitis; Z80.3 Family history of malignant neoplasm of breast; Z87.891 Personal history of nicotine dependence

== ENCOUNTER 2020-10-17 14:01 | Outpatient (RCR) | payer OTHER | END 2020-10-30 | LOC: M ONCR 14:01 | PROVIDERS: ATTEND General Practice | DX: C34.2 Malignant neoplasm of middle lobe, bronchus or lung (principal) ==

== ENCOUNTER → 2020-10-25 | Outpatient (REF) | payer OTHER | LOC: M LAB REF 17:52 | PROVIDERS: ATTEND Physician Assistant | DX: N39.0 Urinary tract infection, site not specified (principal) ==

== ENCOUNTER 2020-11-04 10:43 | Outpatient (RCR) | payer OTHER | END 2020-11-30 | LOC: M ONCR 10:43 | PROVIDERS: ATTEND General Practice | DX: C34.2 Malignant neoplasm of middle lobe, bronchus or lung (principal) ==

== ENCOUNTER → 2020-12-07 | Outpatient (CLI) | payer OTHER ==
[~2020-12-07] MED LIST changes: +PRED20TA PO
--- NOTE | 2020-12-07 16:18 | RADENCPD ---
Date/Time of Encounter Date of Encounter: Dec 07, 2020 Time of Encounter: 16:09 Encounter Nicole came in today for a brief follow up for new onset dry cough and right chest pain. The pain is mild aching extends from the anterior chest laterally, around the side. There is no pleuritic component. No fevers or chills. She is having intermittent hot flashes which predate SBRT for her RML NSCLC. Her cough is dry non-productive and mild in intensity. Aside from these symptoms she is feeling well and doing well. She is not SOB at rest and has minimal COTA. I explained that she may have some radiation pneumonitis. I think chest wall neuropathy is far less likely as her lung lesion did not significantly abut the chest wall. To investigate I will obtain a CXR and if there are no signs of significant infection I will give her empiric prednisone for 10 days, which would be reasonable treatment for any pneumonitis. She agreed and has follow up with me and response assessment CT scans in early January 2021. TANA CHAVIRA MD Dec 07, 2020 16:18
== END ==
LOC: M ONCR 15:22
PROVIDERS: ATTEND General Practice
DX: C34.2 Malignant neoplasm of middle lobe, bronchus or lung (principal)

== ENCOUNTER → 2020-12-07 | Outpatient (CLI) | payer OTHER ==
--- NOTE | 2020-12-08 03:35 | REP ---
INDICATION: COUGH, RT CHEST DISCOMFORT COMPARISON: 09/26/2020 TECHNIQUE: PA and lateral. FINDINGS: The mediastinum and cardiac silhouette are normal. There is a 1 cm density in the right mid lung zone just lateral to the previously placed clips. Remainder lung johnson are clear. No effusion. No pneumothorax. Skeletal structures intact. IMPRESSION: 1 cm density in the right midlung zone. <Electronically signed by Stalin Orozco > 12/08/20 [id number]
== END ==
LOC: M RAD 16:26
PROVIDERS: ATTEND General Practice
DX: C34.2 Malignant neoplasm of middle lobe, bronchus or lung (principal); R91.8 Other nonspecific abnormal finding of lung field

== ENCOUNTER → 2021-02-02 | Outpatient (CLI) | payer OTHER ==
[~2021-02-02] MED LIST changes: +ISOVUE-370 76% 100ML VIAL As Ordered ONE
--- NOTE | 2021-02-02 12:01 | REP ---
INDICATION: LUNG CA COMPARISON: 09/09/2020 TECHNIQUE: Axial contrast enhanced images from the thoracic inlet to the upper abdomen with coronal and sagittal reformations using 75 ml Isovue 370 intravenous contrast material. This CT examination was performed using the following dose reduction techniques: Automated exposure control, adjustment of mA and/or kv according to the patient's size, and use of iterative reconstruction technique. FINDINGS: 2 cm area of density with spiculated margins is again identified along the superior aspect of the right middle lobe which appears more solid than prior examination. Adjacent small surgical clips are noted suggesting interval biopsy. There is obvious increased mediastinal and right hilar adenopathy with lymph nodes measuring up to 2 cm short axis diameter. Remainder of lung johnson are clear and without further consolidation, nodule or mass. No effusion. No pneumothorax. Tracheobronchial tree is patent. IMPRESSION: 2 cm lesion in the right middle lobe with increased mediastinal/hilar adenopathy is consistent with active malignancy. No new lesions, consolidation or effusion noted. <Electronically signed by Stalin Orozco > 02/02/21 [id number]
== END ==
LOC: M RAD 11:26
PROVIDERS: ATTEND General Practice
DX: C34.2 Malignant neoplasm of middle lobe, bronchus or lung (principal)
CPT/HCPCS: 71260; Q9967

== ENCOUNTER → 2021-02-23 | Outpatient (CLI) | payer OTHER ==
[~2021-02-23] MED LIST changes: -ISOVUE-370 76% 100ML VIAL As Ordered ONE
[2021-02-23 08:20] LABS: BASO # 0.1 10^3/uL (0.0-0.2); BASO % 1.3 % (0.0-1.0); EOS # 0.3 10^3/uL (0.0-0.5); EOS % 5.3 % (0.0-3.0); HEMATOCRIT 40.9 % (36.0-47.0); HEMOGLOBIN 13.8 g/dl (12.0-15.5); LYMPH # 2.4 10^3/uL (1.5-5.0); MEAN CORPUSCULAR HEMOGLOBIN 31.7 pg (27.0-33.0); MEAN CORPUSCULAR HGB CONC 33.7 g/dl (32.0-36.5); MONO # 0.7 10^3/uL (0.0-0.8); NEUTROPHILS # 2.7 10^3/uL (1.5-8.5); NEUTROPHILS % 43.8 % (36.0-66.0); PLATELET COUNT, AUTOMATED 233 10^3/uL (150-450); RED BLOOD COUNT 4.35 10^6/uL (4.00-5.40); WHITE BLOOD COUNT 6.3 10^3/uL (4.0-10.0)
--- NOTE | 2021-02-23 09:12 | REP ---
INDICATION: ENCOUNTER FOR SCREENING FOR OTH SUSPECTED ENDOCRINE DISORDER. Clicking sensation of the left lateral ribs. Patient with history of non-small cell lung cancer. COMPARISON: Comparison chest x-ray December 07, 2020.. Comparison chest CT study February 02, 2021. TECHNIQUE: Four views including PA chest. FINDINGS: PA chest radiograph shows 2 fiducial markers in the right perihilar region with some adjacent linear fibrosis. There is slight fullness of the right hilar silhouette on the PA radiograph and this appears a little more prominent. I cannot exclude a enlarged hilar lymph node. Indeed, correlation with the recent chest CT shows adenopathy in this location. There is no evidence of hilar or mediastinal adenopathy on the left. The lungs are otherwise clear. Pleural angles are sharp. Multiple views of the left ribcage show no bony destructive lesion. No rib fracture is seen. IMPRESSION: No acute bony abnormality. Fiducial markers in the right mid lung zone. Increased fullness in the right hilar silhouette. This is consistent with right hilar adenopathy. <Electronically signed by Tj Borrego > 02/23/21 0933
[2021-02-23 10:10] LABS: ALBUMIN 4.2 GM/DL (3.2-5.2); ALT/SGPT 22 U/L (12-78); BILIRUBIN,TOTAL 0.6 MG/DL (0.2-1.0); BLOOD UREA NITROGEN 16 MG/DL (7-18); CALCIUM LEVEL 9.3 MG/DL (8.5-10.1); CARBON DIOXIDE LEVEL 28 MEQ/L (21-32); CHLORIDE LEVEL 108 MEQ/L (98-107); CHOLESTEROL LEVEL 207 MG/DL (<200); CHOLESTEROL RISK RATIO 2.957 (<5); CREATININE FOR GFR 0.76 MG/DL (0.55-1.30); FREE T4 0.73 NG/DL (0.76-1.46); GLOMERULAR FILTRATION RATE > 60.0 (>51); GLUCOSE, FASTING 90 MG/DL (70-100); HDL CHOLESTEROL 70 MG/DL (>40); LDL CHOLESTEROL 124 MG/DL (<100); NON-HDL-C 137 MG/DL; POTASSIUM SERUM 4.3 MEQ/L (3.5-5.1); SODIUM LEVEL 142 MEQ/L (136-145); TOTAL PROTEIN 7.2 GM/DL (6.4-8.2); TRIGLYCERIDES LEVEL 64 MG/DL (<150)
== END ==
LOC: M LAB 07:30
PROVIDERS: ATTEND Family Medicine
DX: R07.81 Pleurodynia (principal); Z13.29 Encounter for screening for other suspected endocrine disorder; Z13.0 Encounter for screening for diseases of the blood and blood-forming organs and certain disorders involving the immune mechanism; Z13.220 Encounter for screening for lipoid disorders

== ENCOUNTER → 2021-03-14 | Outpatient (CLI) | payer OTHER ==
--- NOTE | 2021-03-14 11:29 | REP ---
INDICATION: RESTAGING LUNG CANCER C34.81. Right upper lobe malignancy status post radiation therapy. COMPARISON: Comparison PET-CT study 08/21/2020 and December 30, 2018.. TECHNIQUE: Forty-nine minutes following the intravenous injection of a 9.11 mCi dose of F-18 FDG, three-dimensional PET scintigraphy is acquired from the skull base to the proximal thighs. Triplanar noncontrast CT scanning is acquired through the same anatomic range for attenuation correction, and image registration with scan parameters optimized to minimize radiation exposure to the patient. PET scintigraphy and CT datasets were fused and displayed on a workstation with multiplanar and projection display capability. FINDINGS: In the head and neck soft tissues, there is a hypermetabolic small jeny focus in the right supraclavicular region with maximum standard uptake value 3.68. There is hypermetabolic mediastinal lymphadenopathy. A right superior perivascular lymph node has maximum standard uptake value 4.24. Precarinal adenopathy, 4.18 and AP window adenopathy, 2.78 are present. A subcarinal hypermetabolic jeny focus has maximum standard uptake value 5.17. There is right hilar hypermetabolic adenopathy with maximum SUV value 5.50. There is some linear pleuroparenchymal fibrotic appearing uptake in the right mid lung zone in the region of the previous radiation therapy, maximum SUV value 2.63. This is most consistent with post radiation change. The radiated nodule is no longer hypermetabolic, maximum SUV value 1.62. In the abdomen and pelvis, normal hepatic, splenic, gastrointestinal, and genitourinary FDG distribution is seen. No abnormal adrenal uptake is seen. No abnormal hypermetabolic uptake is seen in the abdomen or pelvis. IMPRESSION: There is evidence of hypermetabolic lymphadenopathy in the chest and right supraclavicular region as above. <Electronically signed by Tj Borrego > 03/14/21 [id number]
== END ==
LOC: M PLARAD 07:30
PROVIDERS: ATTEND General Practice
DX: C34.81 Malignant neoplasm of overlapping sites of right bronchus and lung (principal); Z92.3 Personal history of irradiation; R59.9 Enlarged lymph nodes, unspecified
CPT/HCPCS: 78815; A9552

== ENCOUNTER → 2021-03-20 | Outpatient (CLI) | payer OTHER ==
[~2021-03-20] MED LIST changes: +LIDOCAINE 1% MDV 20ML VIAL As Ordered ONE; +SM A10CA PO; +SODIUM BICARBONATE 8.4% INJ 50MEQ 50 ML VIAL As Ordered ONE
[2021-03-20 10:31] VITALS: BP 146/72
--- NOTE | 2021-03-20 17:32 | REP ---
INDICATION: RT SUPRACLAVICULAR NODE. COMPARISON: None. TECHNIQUE: The procedure was performed by NILSA Todd, under the direct supervision of Dr. Leggett. The risks and benefits of the procedure were explained to the patient and an informed consent was obtained both verbally and written. Directly prior to the start of the procedure a formal time-out was completed in the procedure room. FINDINGS: Using ultrasound guidance the right supraclavicular lymph node was localized. Due to the location of the lymph node it was determined that a fine needle aspiration would be the safest approach. The skin was prepped and draped in a sterile fashion. Four mL of buffered lidocaine was used as a local anesthetic. Using ultrasound guidance a 8 fine needle aspirations were obtained using 25 gauge needles. Four specimens were sent to our lab here, and remaining 4 were sent out in RPMI solution, for further testing. The patient tolerated the procedure well and there were no immediate complications. After the appropriate amount of monitored convalescence the patient was discharged from the department. IMPRESSION: 1. Ultrasound-guided right supraclavicular lymph node fine needle aspiration. <Electronically signed by Aurea Nelson > 03/20/21 1102 <Electronically signed by Fran Leggett > 03/20/21 [id number]
== END ==
LOC: M IRPRO 08:20
PROVIDERS: ATTEND General Practice
DX: C77.0 Secondary and unspecified malignant neoplasm of lymph nodes of head, face and neck (principal); C34.2 Malignant neoplasm of middle lobe, bronchus or lung

== ENCOUNTER 2021-03-29 09:21 | Outpatient (RCR) | payer OTHER ==
[~2021-03-29 09:21] MED LIST changes: +AUGM875T28 PO; +DEXA4TA PO; +FOLI1TAB11 PO; +IBUP-1857 PO; -LIDOCAINE 1% MDV 20ML VIAL As Ordered ONE; -SODIUM BICARBONATE 8.4% INJ 50MEQ 50 ML VIAL As Ordered ONE; +XANA0.25 PO
[2021-03-29] MEDS ORDERED: PROAAER10 INH (11:36)
[2021-04-03] MEDS ORDERED: NYST50SS PO (12:12)
[2021-04-17] MEDS ORDERED: LIDO1CRE42 TOP (08:53)
[2021-04-17] MEDS ORDERED: ONDA-84 PO (10:32)
[2021-04-17] MEDS ORDERED: PROC10TA5 PO (10:32)
[2021-04-21] MEDS ORDERED: FAMO20TA PO ×2 (14:13)
[2021-05-09] MEDS ORDERED: MAGICMW SSP (11:33)
[2021-05-11] MEDS ORDERED: AMOX875T2 PO (11:44)
[2021-05-29] MEDS ORDERED: AMOX500C PO (11:17)
[2021-09-06] MEDS ORDERED: AMOX875T2 (11:32)
[2021-10-13] MEDS ORDERED: FLUTISP (08:57)
[2021-10-13] MEDS ORDERED: LEVO750T13 PO (08:57)
[2021-10-13] MEDS ORDERED: MUCI30TA5 PO (08:57)
[2021-10-13] MEDS ORDERED: CITA20TA7 PO (08:57)
[2021-10-13] MEDS ORDERED: AZEL1SPR3 (08:57)
[2021-10-13] MEDS ORDERED: PROBCAP14 PO (08:58)
[2021-10-13] MEDS ORDERED: PRED10TA2 PO (09:32)
== END 2021-04-01 ==
LOC: M ONCR 09:21
PROVIDERS: ATTEND General Practice
DX: C34.2 Malignant neoplasm of middle lobe, bronchus or lung (principal)

== ENCOUNTER → 2021-04-03 | Outpatient (CLI) | payer OTHER ==
[~2021-04-03] MED LIST changes: +ACETAMINOPHEN 325 MG TAB As Ordered ONE; +AMOX500C PO; +AMOX875T2; +AMOX875T2 PO; +AZEL1SPR3; +CITA20TA7 PO; +FAMO20TA PO; +FLUTISP; +LEVO750T13 PO; +LIDO1CRE42 TOP; +LIDOCAINE 1% MDV 20ML VIAL As Ordered ONE; +MAGICMW SSP; +MIDAZOLAM INJ 2MG/2ML VIAL (J2250 PER 1MG) As Ordered ONE; +MUCI30TA5 PO; +NS 1,000 ML IV SCH; +NYST50SS PO; +ONDA-84 PO; +PRED10TA2 PO; +PROAAER10 INH; +PROBCAP14 PO; +PROC10TA5 PO; +ceFAZolin 2 GM/D5W 50 ML IV BAG (J0690 PER 500MG) As Ordered ONE; +ceFAZolin SOD 2 GM in IV 1 EA IV ONE; +diphenhydrAMINE 50MG/ML VIAL (J1200) As Ordered ONE; +fentaNYL 100 MCG/2 ML INJECTION As Ordered ONE
[2021-04-03 15:00] VITALS: BP 132/73
== END ==
LOC: M IRPRO 11:36
PROVIDERS: ATTEND Radiology Diagnostic Radiology
DX: C34.90 Malignant neoplasm of unspecified part of unspecified bronchus or lung (principal)
CPT/HCPCS: 36561; 99152; 99153; C1769; C1788; C1894; J0690; J1200; J1642; J1644; J2250; J3010

== ENCOUNTER → 2021-04-18 | Outpatient (POV) | payer OTHER ==
[~2021-04-18] VITALS: Ht 162.6 cm; Wt 61.8 kg
[~2021-04-18] MED LIST changes: -ACETAMINOPHEN 325 MG TAB As Ordered ONE; -AMOX500C PO; -AMOX875T2; -AMOX875T2 PO; -AZEL1SPR3; -CITA20TA7 PO; -FLUTISP; -LEVO750T13 PO; -LIDOCAINE 1% MDV 20ML VIAL As Ordered ONE; -MAGICMW SSP; -MIDAZOLAM INJ 2MG/2ML VIAL (J2250 PER 1MG) As Ordered ONE; -MUCI30TA5 PO; -NS 1,000 ML IV SCH; -ONDA-84 PO; +ONDA8TAB10 PO; -PRED10TA2 PO; -PROBCAP14 PO; +PROC10TA4 PO; -PROC10TA5 PO; -ceFAZolin 2 GM/D5W 50 ML IV BAG (J0690 PER 500MG) As Ordered ONE; -ceFAZolin SOD 2 GM in IV 1 EA IV ONE; -diphenhydrAMINE 50MG/ML VIAL (J1200) As Ordered ONE; -fentaNYL 100 MCG/2 ML INJECTION As Ordered ONE
[2021-04-18 10:55] VITALS: BP 138/66
--- NOTE | 2021-04-20 09:08 | IRPN ---
[facility] IR Progress Note IR Progress Note DATE: Apr 18, 2021 FOLLOW-UP: Patient is status post port placement. Patient states she is doing well, no pain, discharge at site fevers or chills. Port has been used without any issues. ON EXAMINATION: Port site appears to be healing well. Steri-Strips are still in place. No redness swelling or discharge at site. IMPRESSION: Doing well status post port placement. No further follow-up scheduled unless initiated by patient and/or referring provider. Thank you for this referral Allergies Coded Allergies: No Known Allergies (Verified , 09/26/20) VS,Fishbone, I+O VS, Fishbone, I+O Vital Signs Date Time Temp Pulse Resp B/P (MAP) Pulse Ox O2 Delivery O2 Flow Rate FiO2 04/18/21 10:55 97.2 66 20 138/66 (90) 97 Room Air CHRISTEN PIERSON MD Apr 20, 2021 09:08
== END ==
LOC: M IRPOV 10:50
PROVIDERS: ATTEND Radiology Diagnostic Radiology
DX: Z45.2 Encounter for adjustment and management of vascular access device (principal)

== ENCOUNTER → 2021-05-02 | Outpatient (RCR) | payer OTHER ==
[~2021-05-02] MED LIST changes: +AMOX500C PO; +AMOX875T2; +AMOX875T2 PO; +MAGICMW SSP; +ONDA-84 PO; -ONDA8TAB10 PO; -PROC10TA4 PO; +PROC10TA5 PO
== END ==
LOC: M ONCR 04-06 08:47
PROVIDERS: ATTEND General Practice
DX: C34.2 Malignant neoplasm of middle lobe, bronchus or lung (principal)

== ENCOUNTER → 2021-05-18 | Outpatient (CLI) | payer OTHER ==
[~2021-05-18] MED LIST changes: -AMOX500C PO; -AMOX875T2; -ONDA-84 PO; +ONDA8TAB10 PO; +PROC10TA4 PO; -PROC10TA5 PO
--- NOTE | 2021-05-18 15:32 | REP ---
INDICATION: PAIN, SWELLING COMPARISON: None. TECHNIQUE: Real time compression and duplex Doppler evaluation of the Right upper extremity deep venous system is performed. FINDINGS: The Right subclavian, jugular, axillary, brachial, basilic and cephalic veins are fully compressible where accessible with transducer pressure, and demonstrate no intraluminal thrombus and normal venous waveforms. There is no evidence of deep venous thrombosis. IMPRESSION: No evidence of deep venous thrombosis of the Right upper extremity deep vein system. No thrombus is visualized surrounding the port catheter. <Electronically signed by Fran Leggett > 05/18/21 [id number]
== END ==
LOC: M RAD 14:28
PROVIDERS: ATTEND General Practice
DX: C34.2 Malignant neoplasm of middle lobe, bronchus or lung (principal)

== ENCOUNTER → 2021-06-01 | Outpatient (RCR) | payer OTHER ==
[~2021-06-01] MED LIST changes: +AMOX500C PO
== END ==
LOC: M ONCR 05-03 10:29
PROVIDERS: ATTEND General Practice
DX: C34.2 Malignant neoplasm of middle lobe, bronchus or lung (principal)

== ENCOUNTER 2021-06-02 10:30 | Outpatient (RCR) | payer OTHER | END 2021-07-02 | LOC: M ONCR 10:30 | PROVIDERS: ATTEND General Practice | DX: C34.2 Malignant neoplasm of middle lobe, bronchus or lung (principal) ==

== ENCOUNTER → 2021-06-06 | Outpatient (CLI) | payer OTHER ==
--- NOTE | 2021-06-06 13:19 | REP ---
INDICATION: RT ARM/NECK PAIN/SWELLING COMPARISON: None. TECHNIQUE: Leggett scale and color Doppler evaluation using linear high frequency transducer. FINDINGS: Ultrasound examination of the right upper extremity deep venous structures including jugular, subclavian, axillary, brachial, basilic and cephalic veins demonstrates normal flow characteristics without evidence for deep venous thrombosis. Contralateral left subclavian vein is patent and normal. IMPRESSION: No evidence for deep venous thrombosis. <Electronically signed by Stalin Orozco > 06/06/21 [id number]
== END ==
LOC: M RAD 12:31
PROVIDERS: ATTEND Internal Medicine Medical Oncology
DX: R22.1 Localized swelling, mass and lump, neck (principal); R22.31 Localized swelling, mass and lump, right upper limb

== ENCOUNTER → 2021-06-23 | Outpatient (CLI) | payer OTHER ==
[~2021-06-23] MED LIST changes: +GASTROGRAFIN SOLUTION 30ML (Q9963) As Ordered ONE; +ISOVUE-370 76% 100ML VIAL As Ordered ONE
--- NOTE | 2021-06-23 11:02 | REP ---
INDICATION: LUNG CA. COMPARISON: 04/05/2010 the only prior TECHNIQUE: Standard helical technique after the intravenous administration of 100 cc Isovue 370 and oral bowel preparatory contrast administration FINDINGS: The liver, gallbladder, spleen, pancreas, adrenal glands, and kidneys are within normal limits. There is an incidental 5 mm sized focal area of decreased density in the interpolar region of the right kidney consistent with a tiny renal cortical cyst. This was visible on the prior CT scan. The abdominal aorta and para-aortic regions are within normal limits. The bowel loops and the mesenteries are within normal limits. There is no evidence of a mass or adenopathy. There is no free fluid or free air. Bone window technique throughout the examination shows the osseous structures to be within normal limits. IMPRESSION: CT findings are within normal limits. <Electronically signed by Lele Khalil > 06/23/21 1059
--- NOTE | 2021-06-23 11:08 | REP ---
INDICATION: LUNG CA COMPARISON: Multiple the latest 02/02/2021 also with contrast TECHNIQUE: Standard helical technique after the intravenous administration of 100 cc Isovue 370 FINDINGS: The mediastinal and hilar adenopathy seen on the prior exam has resolved. The largest mediastinal lymph node seen today has a short axis dimension of 7 mm. There are no pleural or pericardial effusions. The imaged osseous structures are within normal limits. Evaluation of the lung johnson shows significant improvement in the spiculated nodule seen previously in the right middle lobe which previously measured 3 x 0.9 cm maximally in the axial plane and today measures 2 x 0.6 cm maximally measured in the same dimensions. There are fiducial markers status quo. There is a diffuse increase in the interstitial markings in the right upper and middle lobe regions increased somewhat from the prior exam. No new abnormal nodules or masses have developed. IMPRESSION: 1. Adenopathy seen previously has abated as described above. 2. Significant reduction in the size of the spiculated nodule seen in the right middle lobe as described above. 3. Likely postradiation changes as described above. <Electronically signed by Lele Khalil > 06/23/21 [id number]
== END ==
LOC: M RAD 08:31
PROVIDERS: ATTEND Internal Medicine Medical Oncology
DX: C34.90 Malignant neoplasm of unspecified part of unspecified bronchus or lung (principal)
CPT/HCPCS: 71260; 74177; Q9963; Q9967

== ENCOUNTER → 2021-06-28 | Outpatient (CLI) | payer OTHER ==
[~2021-06-28] MED LIST changes: -GASTROGRAFIN SOLUTION 30ML (Q9963) As Ordered ONE; -ISOVUE-370 76% 100ML VIAL As Ordered ONE; +PROHANCE 279.3MG/ML 15ML VIAL As Ordered ONE
--- NOTE | 2021-06-28 11:11 | REPVR ---
PROCEDURE INFORMATION: Exam: MR Head Without and With Contrast Exam date and time: 06/28/2021 9:25 AM Age: 60 years old Clinical indication: Other: Headaches TECHNIQUE: Imaging protocol: MR of the head without and with intravenous contrast. Contrast material: PROHANCE; Contrast volume: 12 ml; Contrast route: INTRAVENOUS (IV); COMPARISON: PET/CT Skull/mid thigh 03/14/2021 8:08 AM FINDINGS: Brain: There are moderate to prominent white matter changes with periventricular, deep, and juxta cortical lesions. Some of these are ovoid and elongated. Differential diagnosis microvascular change, demyelination, infectious or inflammatory processes including Lyme disease, vasculitis, and/or sequela migraine headaches. None of the lesions show contrast enhancement. There is no abnormal leptomeningeal or parenchymal contrast enhancement. Diffusion images are normal. No evidence of acute infarction. No evidence of acute intracranial hemorrhage. No extra-axial fluid collections. Ventricles and cerebrospinal fluid spaces are normal in size and configuration for the patient's age. There is no evidence of mass-effect or midline shift. Flow voids of the [place] and major cerebral vascular structures appear intact. Craniocervical junction appears unremarkable, with normal position of cerebellar tonsils and no evidence of Chiari I malformation. Cerebral ventricles: Normal. No ventriculomegaly. Bones/joints: Unremarkable as visualized. Paranasal sinuses: Normal as visualized. No acute sinusitis. Mastoid air cells: No significant mastoid effusion. Orbital cavity: Unremarkable. Soft tissues: Unremarkable as visualized. IMPRESSION: 1. Nonspecific cerebral white matter changes with differential diagnosis as described. 2. No evidence of acute or chronic hemorrhage, or acute infarct. 3. No evidence of metastatic disease or intracranial mass. Electronically signed by: Funmi Bell On 06/28/2021 11:11:10 AM
== END ==
LOC: M RAD 08:13
PROVIDERS: ATTEND Internal Medicine Medical Oncology
DX: R51.9 Headache, unspecified (principal); C34.90 Malignant neoplasm of unspecified part of unspecified bronchus or lung
CPT/HCPCS: 70553; A9576

== ENCOUNTER → 2021-08-31 | Outpatient (REF) | payer OTHER ==
[~2021-08-31] MED LIST changes: -PROHANCE 279.3MG/ML 15ML VIAL As Ordered ONE
== END ==
LOC: M LAB REF 18:28
PROVIDERS: ATTEND Family Medicine
DX: J01.90 Acute sinusitis, unspecified (principal)

== ENCOUNTER → 2021-09-04 | Outpatient (CLI) | payer OTHER ==
[~2021-09-04] MED LIST changes: +GASTROGRAFIN SOLUTION 30ML (Q9963) As Ordered ONE
--- NOTE | 2021-09-04 20:41 | REP ---
INDICATION: LUNG CA COMPARISON: 06/23/2021 TECHNIQUE: Axial noncontrast images from the thoracic inlet to the upper abdomen with coronal and sagittal reformations. This CT examination was performed using the following dose reduction techniques: Automated exposure control, adjustment of mA and/or kv according to the patient's size, and use of iterative reconstruction technique. FINDINGS: In comparison with prior examination there is very subtle increased density and presence of the linear platelike fibroatelectatic changes within the right mid lung zone surrounding the small surgical clip. While this may represent progressive fibrosis and chronic changes, active pathology/recurrence cannot be excluded. Remainder of the bilateral lung johnson are well aerated and essentially clear. No further consolidation, suspicious nodule or mass. No effusion. No pneumothorax. Tracheobronchial tree is patent. Evaluation of the mediastinum is limited by the lack of contrast and small nonspecific lymph nodes are identified. Thoracic aorta, pulmonary vasculature, and heart/pericardium are stable. [id number] identified with tip in the right atrium. Musculoskeletal structures intact and without acute osseous abnormality. IMPRESSION: There is subtle increase density along the platelike changes in the right mid lung zone in relation to the surgical clip. This may represent progressive fibrosis although active disease including continued malignancy cannot be excluded. Short-term follow-up is recommended. <Electronically signed by Stalin Orozco > 09/04/212036
--- NOTE | 2021-09-04 20:48 | REP ---
INDICATION: LUNG CA COMPARISON: 06/23/2021 TECHNIQUE: Axial noncontrast images from the lung bases to the pubic symphysis with coronal and sagittal reformations. This CT examination was performed using the following dose reduction techniques: Automated exposure control, adjustment of mA and/or kv according to the patient's size, and use of iterative reconstruction technique. FINDINGS: Lung bases are clear. Visualized heart and pericardium normal. Liver, spleen, pancreas, gallbladder, bilateral adrenal glands and kidneys are normal. The enteric system is unremarkable and without obstruction or acute inflammatory process. Normal terminal ileum and appendix identified in the right lower quadrant. Pelvis demonstrates normal bladder and evidence for prior hysterectomy. No ascites. No free air. No adenopathy. No focal inflammatory stranding. Abdominal aorta without aneurysm. Musculoskeletal structures are intact and without acute osseous abnormality. IMPRESSION: No acute abdominopelvic pathology appreciated. No evidence for metastatic disease. <Electronically signed by Stalin Orozco > 09/04/211
== END ==
LOC: M RAD 14:35
PROVIDERS: ATTEND Internal Medicine Hematology & Oncology
DX: C34.90 Malignant neoplasm of unspecified part of unspecified bronchus or lung (principal)
CPT/HCPCS: 71250; 74176; Q9963

== ENCOUNTER → 2021-09-06 | Outpatient (CLI) | payer OTHER ==
[~2021-09-06] MED LIST changes: +AMOX875T2; -GASTROGRAFIN SOLUTION 30ML (Q9963) As Ordered ONE
== END ==
LOC: M ONCR 10:32
PROVIDERS: ATTEND General Practice
DX: C34.2 Malignant neoplasm of middle lobe, bronchus or lung (principal); Z87.891 Personal history of nicotine dependence; Z92.3 Personal history of irradiation; Z92.21 Personal history of antineoplastic chemotherapy; Z79.899 Other long term (current) drug therapy

== ENCOUNTER → 2021-09-13 | Outpatient (REF) | payer OTHER ==
[~2021-09-13] MED LIST changes: +ONDA-84 PO; -ONDA8TAB10 PO; -PROC10TA4 PO; +PROC10TA5 PO
== END ==
LOC: M LAB REF 17:17
PROVIDERS: ATTEND Family Medicine
DX: R10.2 Pelvic and perineal pain (principal)

== ENCOUNTER → 2021-10-04 | Outpatient (REF) | payer OTHER | LOC: M LAB REF 17:04 | PROVIDERS: ATTEND Physician Assistant | DX: J06.9 Acute upper respiratory infection, unspecified (principal) | CPT/HCPCS: 87633; U0003 ==

== ENCOUNTER → 2021-10-11 | Outpatient (CLI) | payer OTHER | LOC: M WUC 08:04 | PROVIDERS: ATTEND Family Medicine | DX: R91.8 Other nonspecific abnormal finding of lung field (principal); R05.2 Subacute cough ==

== ENCOUNTER → 2021-10-13 | Outpatient (CLI) | payer OTHER ==
[~2021-10-13] MED LIST changes: +AZEL1SPR3; +CITA20TA7 PO; +FLUTISP; +ISOVUE-370 76% 100ML VIAL As Ordered ONE; +LEVO750T13 PO; +MUCI30TA5 PO; +PRED10TA2 PO; +PROBCAP14 PO
== END ==
LOC: M RAD 10:30
PROVIDERS: ATTEND Internal Medicine Medical Oncology
DX: R06.02 Shortness of breath (principal); C34.90 Malignant neoplasm of unspecified part of unspecified bronchus or lung

== ENCOUNTER → 2021-11-10 | Outpatient (CLI) | payer OTHER ==
[~2021-11-10] MED LIST changes: +AMOX875T PO; +IBUP200C25 PO; -ISOVUE-370 76% 100ML VIAL As Ordered ONE
== END ==
LOC: M RAD 12:01
PROVIDERS: ATTEND Internal Medicine Medical Oncology
DX: C34.90 Malignant neoplasm of unspecified part of unspecified bronchus or lung (principal)

== ENCOUNTER → 2021-12-06 | Outpatient (CLI) | payer OTHER ==
[~2021-12-06] MED LIST changes: +FLUT1INH2 INH; +SYMB16INH INH; +VENTAER INH
== END ==
LOC: M ONCR 15:20
PROVIDERS: ATTEND General Practice
DX: C34.2 Malignant neoplasm of middle lobe, bronchus or lung (principal); Z79.51 Long term (current) use of inhaled steroids; Z87.891 Personal history of nicotine dependence; Z92.22 Personal history of monoclonal drug therapy; Z92.3 Personal history of irradiation

== ENCOUNTER → 2022-02-22 | Outpatient (CLI) | payer OTHER ==
[~2022-02-22] MED LIST changes: +GASTROGRAFIN SOLUTION 30ML (Q9963) As Ordered ONE; +ISOVUE-370 76% 100ML VIAL As Ordered ONE
== END ==
LOC: M RAD 08:04
PROVIDERS: ATTEND Internal Medicine Medical Oncology
DX: C34.91 Malignant neoplasm of unspecified part of right bronchus or lung (principal); R91.8 Other nonspecific abnormal finding of lung field
CPT/HCPCS: 71260; 74177; Q9963; Q9967

== ENCOUNTER → 2022-03-14 | Outpatient (CLI) | payer OTHER ==
[~2022-03-14] MED LIST changes: -GASTROGRAFIN SOLUTION 30ML (Q9963) As Ordered ONE; -ISOVUE-370 76% 100ML VIAL As Ordered ONE
== END ==
LOC: M ONCR 10:21
PROVIDERS: ATTEND General Practice
DX: C34.2 Malignant neoplasm of middle lobe, bronchus or lung (principal); Z79.51 Long term (current) use of inhaled steroids; Z79.899 Other long term (current) drug therapy; Z87.891 Personal history of nicotine dependence; Z92.25 Personal history of immunosuppression therapy; Z92.21 Personal history of antineoplastic chemotherapy; Z92.3 Personal history of irradiation

== ENCOUNTER → 2022-03-14 | Outpatient (CLI) | payer OTHER | LOC: M RAD 14:24 | PROVIDERS: ATTEND Nurse Practitioner | DX: C34.81 Malignant neoplasm of overlapping sites of right bronchus and lung (principal) ==

== ENCOUNTER → 2022-04-16 | Outpatient (CLI) | payer OTHER ==
[~2022-04-16] MED LIST changes: +LEVO1TAB40 PO; -LEVO750T13 PO
== END ==
LOC: M PLARAD 07:24
PROVIDERS: ATTEND Nurse Practitioner
DX: C34.81 Malignant neoplasm of overlapping sites of right bronchus and lung (principal); K42.9 Umbilical hernia without obstruction or gangrene
CPT/HCPCS: 78815; A9552

== ENCOUNTER → 2022-04-23 | Outpatient (CLI) | payer OTHER ==
[~2022-04-23] MED LIST changes: +CEFD300C41 PO
== END ==
LOC: M RAD 12:18
PROVIDERS: ATTEND Nurse Practitioner
DX: R22.41 Localized swelling, mass and lump, right lower limb (principal)

== ENCOUNTER → 2022-04-23 | Outpatient (CLI) | payer OTHER | LOC: M RAD 12:25 | PROVIDERS: ATTEND Physician Assistant Medical | DX: M79.671 Pain in right foot (principal) ==

== ENCOUNTER → 2022-07-16 | Outpatient (CLI) | payer OTHER | LOC: M WHC 07:42 | PROVIDERS: ATTEND Internal Medicine Medical Oncology | DX: Z12.31 Encounter for screening mammogram for malignant neoplasm of breast (principal) ==

== ENCOUNTER → 2022-07-25 | Outpatient (CLI) | payer OTHER ==
[~2022-07-25] MED LIST changes: +GASTROGRAFIN SOLUTION 30ML As Ordered ONE; +ISOVUE-370 76% 100ML VIAL As Ordered ONE
== END ==
LOC: M RAD 09:30
PROVIDERS: ATTEND Internal Medicine Medical Oncology
DX: C34.90 Malignant neoplasm of unspecified part of unspecified bronchus or lung (principal); I25.10 Atherosclerotic heart disease of native coronary artery without angina pectoris; I70.0 Atherosclerosis of aorta

== ENCOUNTER → 2022-09-14 | Outpatient (CLI) | payer OTHER ==
[~2022-09-14] MED LIST changes: -GASTROGRAFIN SOLUTION 30ML As Ordered ONE; -ISOVUE-370 76% 100ML VIAL As Ordered ONE; +LEVO25TA5 PO; +NYST-38 PO; -NYST50SS PO
== END ==
LOC: M ONCR 10:10
PROVIDERS: ATTEND Radiology Radiation Oncology
DX: C34.2 Malignant neoplasm of middle lobe, bronchus or lung (principal); Z79.890 Hormone replacement therapy; Z87.891 Personal history of nicotine dependence; Z92.3 Personal history of irradiation

== ENCOUNTER → 2022-09-28 | Outpatient (CLI) | payer OTHER | LOC: M PLAIMG 10:09 | PROVIDERS: ATTEND Family Medicine | DX: J32.9 Chronic sinusitis, unspecified (principal) ==

== ENCOUNTER → 2022-12-15 | Outpatient (REF) | payer OTHER ==
[~2022-12-15] MED LIST changes: +FLUT50SP17; -FLUTISP
== END ==
LOC: M LAB REF 12:22
PROVIDERS: ATTEND Physician Assistant Medical
DX: J02.9 Acute pharyngitis, unspecified (principal)

== ENCOUNTER → 2022-12-24 | Outpatient (CLI) | payer OTHER | LOC: M RAD 09:50 | PROVIDERS: ATTEND Internal Medicine Medical Oncology | DX: R22.1 Localized swelling, mass and lump, neck (principal) ==

== ENCOUNTER → 2023-01-07 | Outpatient (CLI) | payer OTHER ==
[~2023-01-07] MED LIST changes: +GASTROGRAFIN SOLUTION 30ML As Ordered ONE; +ISOVUE-370 76% 100ML VIAL As Ordered ONE
== END ==
LOC: M RAD 06:44
PROVIDERS: ATTEND Internal Medicine Medical Oncology
DX: C34.90 Malignant neoplasm of unspecified part of unspecified bronchus or lung (principal)
CPT/HCPCS: 71260; 74177; Q9963; Q9967

== ENCOUNTER → 2023-02-08 | Outpatient (CLI) | payer OTHER ==
[~2023-02-08] MED LIST changes: -GASTROGRAFIN SOLUTION 30ML As Ordered ONE; -ISOVUE-370 76% 100ML VIAL As Ordered ONE
== END ==
LOC: M RAD 06:23
PROVIDERS: ATTEND Internal Medicine Medical Oncology
DX: C34.90 Malignant neoplasm of unspecified part of unspecified bronchus or lung (principal)

== ENCOUNTER → 2023-03-13 | Outpatient (CLI) | payer OTHER ==
[~2023-03-13] MED LIST changes: -LIDO1CRE42 TOP; +LIDO30CR18 TOP
== END ==
LOC: M ONCR 10:03
PROVIDERS: ATTEND General Practice
DX: C34.2 Malignant neoplasm of middle lobe, bronchus or lung (principal); D37.030 Neoplasm of uncertain behavior of the parotid salivary glands; M79.605 Pain in left leg; Z71.2 Person consulting for explanation of examination or test findings; Z79.890 Hormone replacement therapy; Z79.899 Other long term (current) drug therapy; Z87.891 Personal history of nicotine dependence; Z92.21 Personal history of antineoplastic chemotherapy; Z92.3 Personal history of irradiation

== ENCOUNTER → 2023-03-14 | Outpatient (CLI) | payer OTHER | LOC: M RAD 12:01 | PROVIDERS: ATTEND Family Medicine | DX: M79.605 Pain in left leg (principal) ==

== ENCOUNTER → 2023-04-09 | Outpatient (CLI) | payer OTHER | LOC: M PLARAD 11:49 | PROVIDERS: ATTEND Nurse Practitioner | DX: C34.81 Malignant neoplasm of overlapping sites of right bronchus and lung (principal) | CPT/HCPCS: 78815; A9552 ==

== ENCOUNTER → 2023-04-12 | Outpatient (CLI) | payer OTHER | LOC: M ONCR 10:50 | PROVIDERS: ATTEND General Practice | DX: C34.2 Malignant neoplasm of middle lobe, bronchus or lung (principal); Z71.2 Person consulting for explanation of examination or test findings ==

== ENCOUNTER → 2023-05-17 | Outpatient (CLI) | payer OTHER ==
[~2023-05-17] MED LIST changes: +ISOVUE-370 76% 100ML VIAL As Ordered ONE
== END ==
LOC: M RAD 13:05
PROVIDERS: ATTEND Otolaryngology
DX: R59.0 Localized enlarged lymph nodes (principal)
CPT/HCPCS: 70491; Q9967

== ENCOUNTER → 2023-07-18 | Outpatient (CLI) | payer OTHER ==
[~2023-07-18] MED LIST changes: -CEFD300C41 PO; +CEFD300C42 PO; +FLU60SYR IM; -ISOVUE-370 76% 100ML VIAL As Ordered ONE; +PROHANCE 279.3MG/ML 15ML VIAL As Ordered ONE; +RSV120VI IM
== END ==
LOC: M RAD 10:24
PROVIDERS: ATTEND Internal Medicine Medical Oncology
DX: C34.90 Malignant neoplasm of unspecified part of unspecified bronchus or lung (principal); R51.9 Headache, unspecified
CPT/HCPCS: 70553; A9576

== ENCOUNTER → 2023-08-19 | Outpatient (REF) | payer OTHER ==
[~2023-08-19] MED LIST changes: +CEFD1CAP9 PO; -CEFD300C42 PO; -FLUT50SP17; +FLUTISP; +OXYC-517 PO; -PROHANCE 279.3MG/ML 15ML VIAL As Ordered ONE
[2023-08-19 16:45] LABS: CLOSTRIDIUM DIFFICILE PCR NEGATIVE (NEGATIVE)
== END ==
LOC: M LAB REF 14:42
PROVIDERS: ATTEND Internal Medicine Medical Oncology
DX: K92.9 Disease of digestive system, unspecified (principal)

== ENCOUNTER → 2023-08-28 | Outpatient (CLI) | payer OTHER ==
[~2023-08-28] MED LIST changes: +ISOVUE-370 76% 100ML VIAL As Ordered ONE
== END ==
LOC: M RAD 08:24
PROVIDERS: ATTEND Internal Medicine Medical Oncology
DX: C34.90 Malignant neoplasm of unspecified part of unspecified bronchus or lung (principal)
CPT/HCPCS: 70491; 71260; Q9967

== ENCOUNTER → 2023-09-13 | Outpatient (CLI) | payer OTHER ==
[~2023-09-13] MED LIST changes: -ISOVUE-370 76% 100ML VIAL As Ordered ONE; +PROA1AER2 INH
== END ==
LOC: M ONCR 10:11
PROVIDERS: ATTEND General Practice
DX: C34.2 Malignant neoplasm of middle lobe, bronchus or lung (principal); C77.0 Secondary and unspecified malignant neoplasm of lymph nodes of head, face and neck; Z71.2 Person consulting for explanation of examination or test findings; Z79.890 Hormone replacement therapy; Z79.891 Long term (current) use of opiate analgesic; Z79.899 Other long term (current) drug therapy; Z87.891 Personal history of nicotine dependence; Z92.21 Personal history of antineoplastic chemotherapy; Z92.3 Personal history of irradiation

== ENCOUNTER → 2023-09-19 | Outpatient (CLI) | payer OTHER | LOC: M WHC 09:22 | PROVIDERS: ATTEND Internal Medicine Medical Oncology | DX: Z12.31 Encounter for screening mammogram for malignant neoplasm of breast (principal); R92.323 Mammographic fibroglandular density, bilateral breasts; C34.90 Malignant neoplasm of unspecified part of unspecified bronchus or lung ==

== ENCOUNTER → 2023-09-24 | Outpatient (CLI) | payer OTHER | LOC: M RAD 14:52 | PROVIDERS: ATTEND Internal Medicine Medical Oncology | DX: R22.1 Localized swelling, mass and lump, neck (principal); Z85.118 Personal history of other malignant neoplasm of bronchus and lung ==

== ENCOUNTER → 2023-10-14 | Outpatient (CLI) | payer OTHER | LOC: M EKG 10:42 | PROVIDERS: ATTEND Internal Medicine Medical Oncology | DX: C34.90 Malignant neoplasm of unspecified part of unspecified bronchus or lung (principal); I45.10 Unspecified right bundle-branch block ==

== ENCOUNTER → 2023-11-24 | Outpatient (CLI) | payer OTHER ==
[~2023-11-24] MED LIST changes: +AZIT-12 PO
[2023-11-24 12:12] LABS: BASO % 0.7 % (0.0-1.0); EOS # 0.2 10^3/uL (0.0-0.5); HEMATOCRIT 39.1 % (36.0-47.0); HEMOGLOBIN 13.5 g/dl (12.0-15.5); LYMPH # 1.3 10^3/uL (1.5-5.0); LYMPH % 29.8 % (24.0-44.0); MEAN CORPUSCULAR HEMOGLOBIN 34.5 pg (27.0-33.0); MEAN CORPUSCULAR HGB CONC 34.5 g/dl (32.0-36.5); MONO # 0.4 10^3/uL (0.0-0.8); MONO % 10.2 % (2.0-8.0); NEUTROPHILS # 2.3 10^3/uL (1.5-8.5); NEUTROPHILS % 55.1 % (36.0-66.0); PLATELET COUNT, AUTOMATED 161 10^3/uL (150-450); RED BLOOD COUNT 3.91 10^6/uL (4.00-5.40); WHITE BLOOD COUNT 4.2 10^3/uL (4.0-10.0)
[2023-11-24 12:14] LABS: APPEARANCE, URINE CLEAR (CLEAR); BACTERIA, URINE AUTO NEGATIVE (NEGATIVE); BILIRUBIN, URINE AUTO NEGATIVE (NEGATIVE); BLOOD, URINE BLOOD 1+ (NEGATIVE); COLOR, URINE COLORLESS (YELLOW); GLUCOSE, URINE (UA) AUTO NEGATIVE (NEGATIVE); KETONE, URINE AUTO NEGATIVE (NEGATIVE); LEUKOCYTE ESTERASE, URINE AUTO 1+ (NEGATIVE); MUCUS, URINE SMALL (NEGATIVE); NITRITE, URINE AUTO NEGATIVE (NEGATIVE); PROTEIN, URINE AUTO NEGATIVE (NEGATIVE); RBC, URINE AUTO 0 /HPF (0-3); SPECIFIC GRAVITY URINE AUTO 1.003 (1.002-1.035); SQUAMOUS EPITHELIAL CELL UR AU 1 /HPF (0-6); UROBILINOGEN, URINE AUTO 0.2 mg/dL (0.0-2.0); WBC, URINE AUTO 3 /HPF (0-3)
[2023-11-24 12:45] LABS: ALBUMIN 4.2 G/DL (3.2-5.2); ALKALINE PHOSPHATASE 109 U/L (46-116); ALT/SGPT 23 U/L (7.0-40); AST/SGOT 16 U/L (<34); BILIRUBIN,TOTAL 0.4 MG/DL (0.3-1.2); BLOOD UREA NITROGEN 17 MG/DL (9-23); CARBON DIOXIDE LEVEL 28 MMOL/L (20-31); CHLORIDE LEVEL 109 MMOL/L (98-107); CREATININE FOR GFR 0.75 MG/DL (0.55-1.30); GLOMERULAR FILTRATION RATE > 60.0 (>45); GLUCOSE, FASTING 122 MG/DL (74-106); POTASSIUM SERUM 4.1 MMOL/L (3.5-5.1); SODIUM LEVEL 141 MMOL/L (136-145); TOTAL PROTEIN 6.9 G/DL (5.7-8.2)
[2023-11-25 12:54] LABS: MAGNESIUM LEVEL 1.8 MG/DL (1.8-2.4)
== END ==
LOC: M LAB 11:27
PROVIDERS: ATTEND Internal Medicine Medical Oncology
DX: C34.90 Malignant neoplasm of unspecified part of unspecified bronchus or lung (principal)

== ENCOUNTER → 2023-11-25 | Outpatient (CLI) | payer OTHER | LOC: M RAD 11:21 | PROVIDERS: ATTEND Nurse Practitioner | DX: M79.601 Pain in right arm (principal) ==

== ENCOUNTER → 2023-12-06 | Outpatient (CLI) | payer OTHER ==
[~2023-12-06] MED LIST changes: +GASTROGRAFIN SOLUTION 30ML ONE; +ISOVUE-370 76% 100ML VIAL ONE
== END ==
LOC: M PLAIMG 07:18
PROVIDERS: ATTEND Internal Medicine Medical Oncology
DX: C34.90 Malignant neoplasm of unspecified part of unspecified bronchus or lung (principal)
CPT/HCPCS: 70491; 71260; 74177; Q9963; Q9967

== ENCOUNTER → 2023-12-16 | Outpatient (CLI) | payer OTHER ==
[~2023-12-16] MED LIST changes: -GASTROGRAFIN SOLUTION 30ML ONE; -ISOVUE-370 76% 100ML VIAL ONE
[2023-12-16 09:09] LABS: BASO % 1.1 % (0.0-1.0); EOS # 0.2 10^3/uL (0.0-0.5); EOS % 5.2 % (0.0-3.0); HEMATOCRIT 39.3 % (36.0-47.0); HEMOGLOBIN 13.6 g/dl (12.0-15.5); LYMPH # 1.2 10^3/uL (1.5-5.0); LYMPH % 33.3 % (24.0-44.0); MEAN CORPUSCULAR HEMOGLOBIN 34.8 pg (27.0-33.0); MEAN CORPUSCULAR HGB CONC 34.6 g/dl (32.0-36.5); MEAN CORPUSCULAR VOLUME 100.5 fl (80.0-96.0); MONO # 0.4 10^3/uL (0.0-0.8); MONO % 11.5 % (2.0-8.0); NEUTROPHILS # 1.8 10^3/uL (1.5-8.5); NEUTROPHILS % 48.6 % (36.0-66.0); PLATELET COUNT, AUTOMATED 182 10^3/uL (150-450); RED BLOOD COUNT 3.91 10^6/uL (4.00-5.40); WHITE BLOOD COUNT 3.7 10^3/uL (4.0-10.0)
[2023-12-16 09:26] LABS: ALBUMIN 3.6 G/DL (3.2-5.2); ALKALINE PHOSPHATASE 100 U/L (46-116); ALT/SGPT 24 U/L (7.0-40); AST/SGOT 16 U/L (<34); BILIRUBIN,TOTAL 0.6 MG/DL (0.3-1.2); BLOOD UREA NITROGEN 20 MG/DL (9-23); CALCIUM LEVEL 8.9 MG/DL (8.3-10.6); CARBON DIOXIDE LEVEL 28 MMOL/L (20-31); CHLORIDE LEVEL 108 MMOL/L (98-107); GLOMERULAR FILTRATION RATE > 60.0 (>45); GLUCOSE, FASTING 88 MG/DL (74-106); MAGNESIUM LEVEL 1.7 MG/DL (1.8-2.4); POTASSIUM SERUM 4.3 MMOL/L (3.5-5.1); SODIUM LEVEL 143 MMOL/L (136-145); TOTAL PROTEIN 6.6 G/DL (5.7-8.2)
== END ==
LOC: M LAB 08:19
PROVIDERS: ATTEND Internal Medicine Medical Oncology
DX: Z79.899 Other long term (current) drug therapy (principal)

== ENCOUNTER → 2023-12-31 | Outpatient (CLI) | payer OTHER | LOC: M WUC 09:27 | PROVIDERS: ATTEND Family Medicine | DX: M79.601 Pain in right arm (principal) ==

== ENCOUNTER → 2024-01-05 | Outpatient (CLI) | payer OTHER ==
[2024-01-05 12:37] LABS: BASO % 0.6 % (0.0-1.0); EOS # 0.2 10^3/uL (0.0-0.5); EOS % 5.2 % (0.0-3.0); HEMATOCRIT 38.9 % (36.0-47.0); HEMOGLOBIN 13.6 g/dl (12.0-15.5); LYMPH # 1.6 10^3/uL (1.5-5.0); LYMPH % 33.5 % (24.0-44.0); MEAN CORPUSCULAR HEMOGLOBIN 34.3 pg (27.0-33.0); MONO # 0.5 10^3/uL (0.0-0.8); MONO % 11.4 % (2.0-8.0); NEUTROPHILS # 2.3 10^3/uL (1.5-8.5); NEUTROPHILS % 48.7 % (36.0-66.0); PLATELET COUNT, AUTOMATED 196 10^3/uL (150-450); RED BLOOD COUNT 3.97 10^6/uL (4.00-5.40); WHITE BLOOD COUNT 4.7 10^3/uL (4.0-10.0)
[2024-01-05 13:15] LABS: ALBUMIN 3.8 G/DL (3.2-5.2); ALKALINE PHOSPHATASE 93 U/L (46-116); ALT/SGPT 26 U/L (7.0-40); AST/SGOT 18 U/L (<34); BILIRUBIN,TOTAL 0.5 MG/DL (0.3-1.2); BLOOD UREA NITROGEN 16 MG/DL (9-23); CALCIUM LEVEL 9.2 MG/DL (8.3-10.6); CARBON DIOXIDE LEVEL 28 MMOL/L (20-31); CHLORIDE LEVEL 108 MMOL/L (98-107); CREATININE FOR GFR 0.79 MG/DL (0.55-1.30); GLOMERULAR FILTRATION RATE > 60.0 (>45); GLUCOSE, FASTING 89 MG/DL (74-106); MAGNESIUM LEVEL 1.7 MG/DL (1.8-2.4); POTASSIUM SERUM 4.5 MMOL/L (3.5-5.1); SODIUM LEVEL 141 MMOL/L (136-145); TOTAL PROTEIN 6.8 G/DL (5.7-8.2)
== END ==
LOC: M LAB 12:04
PROVIDERS: ATTEND Internal Medicine Medical Oncology
DX: Z79.899 Other long term (current) drug therapy (principal)

== ENCOUNTER → 2024-01-27 | Outpatient (CLI) | payer OTHER ==
[2024-01-27 10:07] LABS: BASO % 1.1 % (0.0-1.0); EOS # 0.2 10^3/uL (0.0-0.5); EOS % 5.1 % (0.0-3.0); HEMOGLOBIN 14.5 g/dl (12.0-15.5); LYMPH # 1.6 10^3/uL (1.5-5.0); LYMPH % 41.7 % (24.0-44.0); MEAN CORPUSCULAR HEMOGLOBIN 34.6 pg (27.0-33.0); MEAN CORPUSCULAR HGB CONC 35.4 g/dl (32.0-36.5); MEAN CORPUSCULAR VOLUME 97.9 fl (80.0-96.0); MONO # 0.4 10^3/uL (0.0-0.8); MONO % 9.7 % (2.0-8.0); NEUTROPHILS # 1.6 10^3/uL (1.5-8.5); NEUTROPHILS % 42.4 % (36.0-66.0); PLATELET COUNT, AUTOMATED 175 10^3/uL (150-450); RED BLOOD COUNT 4.19 10^6/uL (4.00-5.40); WHITE BLOOD COUNT 3.7 10^3/uL (4.0-10.0)
[2024-01-27 10:32] LABS: ALKALINE PHOSPHATASE 94 U/L (46-116); ALT/SGPT 20 U/L (7.0-40); AST/SGOT 14 U/L (<34); BILIRUBIN,TOTAL 0.7 MG/DL (0.3-1.2); BLOOD UREA NITROGEN 16 MG/DL (9-23); CALCIUM LEVEL 9.2 MG/DL (8.3-10.6); CARBON DIOXIDE LEVEL 27 MMOL/L (20-31); CHLORIDE LEVEL 107 MMOL/L (98-107); CREATININE FOR GFR 0.82 MG/DL (0.55-1.30); GLOMERULAR FILTRATION RATE > 60.0 (>45); GLUCOSE, FASTING 87 MG/DL (74-106); MAGNESIUM LEVEL 1.9 MG/DL (1.8-2.4); POTASSIUM SERUM 4.6 MMOL/L (3.5-5.1); SODIUM LEVEL 140 MMOL/L (136-145); TOTAL PROTEIN 6.9 G/DL (5.7-8.2)
[2024-01-28 14:29] LABS: FREE T4 1.01 NG/DL (0.89-1.76)
== END ==
LOC: M LAB 08:39
PROVIDERS: ATTEND Internal Medicine Medical Oncology
DX: C80.1 Malignant (primary) neoplasm, unspecified (principal)

== ENCOUNTER → 2024-02-17 | Outpatient (CLI) | payer OTHER ==
[~2024-02-17] MED LIST changes: +GABA-1171 PO
[2024-02-17 08:13] LABS: BASO % 1.1 % (0.0-1.0); EOS # 0.2 10^3/uL (0.0-0.5); EOS % 6.3 % (0.0-3.0); HEMOGLOBIN 13.7 g/dl (12.0-15.5); LYMPH # 1.3 10^3/uL (1.5-5.0); LYMPH % 36.1 % (24.0-44.0); MEAN CORPUSCULAR HEMOGLOBIN 34.8 pg (27.0-33.0); MEAN CORPUSCULAR HGB CONC 35.1 g/dl (32.0-36.5); MONO # 0.4 10^3/uL (0.0-0.8); MONO % 10.8 % (2.0-8.0); NEUTROPHILS # 1.6 10^3/uL (1.5-8.5); NEUTROPHILS % 45.4 % (36.0-66.0); PLATELET COUNT, AUTOMATED 165 10^3/uL (150-450); RED BLOOD COUNT 3.94 10^6/uL (4.00-5.40); WHITE BLOOD COUNT 3.5 10^3/uL (4.0-10.0)
[2024-02-17 08:28] LABS: APPEARANCE, URINE CLEAR (CLEAR); BACTERIA, URINE AUTO NEGATIVE (NEGATIVE); BILIRUBIN, URINE AUTO NEGATIVE (NEGATIVE); BLOOD, URINE BLOOD NEGATIVE (NEGATIVE); COLOR, URINE STRAW (YELLOW); GLUCOSE, URINE (UA) AUTO NEGATIVE (NEGATIVE); KETONE, URINE AUTO NEGATIVE (NEGATIVE); LEUKOCYTE ESTERASE, URINE AUTO NEGATIVE (NEGATIVE); NITRITE, URINE AUTO NEGATIVE (NEGATIVE); PROTEIN, URINE AUTO NEGATIVE (NEGATIVE); RBC, URINE AUTO 1 /HPF (0-3); SPECIFIC GRAVITY URINE AUTO 1.011 (1.002-1.035); SQUAMOUS EPITHELIAL CELL UR AU 1 /HPF (0-6); UROBILINOGEN, URINE AUTO 0.2 mg/dL (0.0-2.0); WBC, URINE AUTO 3 /HPF (0-3)
[2024-02-17 08:56] LABS: ALKALINE PHOSPHATASE 82 U/L (46-116); ALT/SGPT 20 U/L (7.0-40); AST/SGOT 13 U/L (<34); BILIRUBIN,TOTAL 0.7 MG/DL (0.3-1.2); BLOOD UREA NITROGEN 18 MG/DL (9-23); CALCIUM LEVEL 9.2 MG/DL (8.3-10.6); CARBON DIOXIDE LEVEL 25 MMOL/L (20-31); CHLORIDE LEVEL 109 MMOL/L (98-107); CREATININE FOR GFR 0.79 MG/DL (0.55-1.30); GLOMERULAR FILTRATION RATE > 60.0 (>45); GLUCOSE, FASTING 117 MG/DL (74-106); MAGNESIUM LEVEL 1.6 MG/DL (1.8-2.4); POTASSIUM SERUM 4.2 MMOL/L (3.5-5.1); SODIUM LEVEL 140 MMOL/L (136-145); TOTAL PROTEIN 6.6 G/DL (5.7-8.2)
[2024-02-17 08:57] LABS: FREE T4 1.02 NG/DL (0.89-1.76); THYROID STIMULATING HORMONE 4.509 uIU/ML (0.55-4.78)
== END ==
LOC: M LAB 07:04
PROVIDERS: ATTEND Internal Medicine Medical Oncology
DX: C34.90 Malignant neoplasm of unspecified part of unspecified bronchus or lung (principal)

== ENCOUNTER → 2024-02-19 | Outpatient (CLI) | payer OTHER | LOC: M RAD 09:02 | PROVIDERS: ATTEND Internal Medicine Medical Oncology | DX: C34.90 Malignant neoplasm of unspecified part of unspecified bronchus or lung (principal) | CPT/HCPCS: 78306; A9503 ==

== ENCOUNTER → 2024-03-09 | Outpatient (CLI) | payer OTHER ==
[~2024-03-09] MED LIST changes: +GASTROGRAFIN SOLUTION 30ML As Ordered ONE; +ISOVUE-370 76% 100ML VIAL As Ordered ONE
[2024-03-09 11:51] LABS: APPEARANCE, URINE CLEAR (CLEAR); BACTERIA, URINE AUTO NEGATIVE (NEGATIVE); BILIRUBIN, URINE AUTO NEGATIVE (NEGATIVE); BLOOD, URINE BLOOD NEGATIVE (NEGATIVE); COLOR, URINE STRAW (YELLOW); GLUCOSE, URINE (UA) AUTO NEGATIVE (NEGATIVE); KETONE, URINE AUTO NEGATIVE (NEGATIVE); LEUKOCYTE ESTERASE, URINE AUTO NEGATIVE (NEGATIVE); NITRITE, URINE AUTO NEGATIVE (NEGATIVE); PROTEIN, URINE AUTO NEGATIVE (NEGATIVE); RBC, URINE AUTO 0 /HPF (0-3); SPECIFIC GRAVITY URINE AUTO 1.003 (1.002-1.035); SQUAMOUS EPITHELIAL CELL UR AU 0 /HPF (0-6); UROBILINOGEN, URINE AUTO 0.2 mg/dL (0.0-2.0); WBC, URINE AUTO 0 /HPF (0-3)
[2024-03-09 12:04] LABS: BASO % 0.6 % (0.0-1.0); EOS # 0.3 10^3/uL (0.0-0.5); EOS % 6.4 % (0.0-3.0); HEMOGLOBIN 13.6 g/dl (12.0-15.5); LYMPH # 1.5 10^3/uL (1.5-5.0); LYMPH % 29.7 % (24.0-44.0); MEAN CORPUSCULAR HEMOGLOBIN 34.4 pg (27.0-33.0); MEAN CORPUSCULAR HGB CONC 34.9 g/dl (32.0-36.5); MEAN CORPUSCULAR VOLUME 98.7 fl (80.0-96.0); MONO # 0.5 10^3/uL (0.0-0.8); MONO % 9.2 % (2.0-8.0); NEUTROPHILS # 2.6 10^3/uL (1.5-8.5); NEUTROPHILS % 53.3 % (36.0-66.0); PLATELET COUNT, AUTOMATED 188 10^3/uL (150-450); RED BLOOD COUNT 3.95 10^6/uL (4.00-5.40); WHITE BLOOD COUNT 4.9 10^3/uL (4.0-10.0)
[2024-03-09 12:18] LABS: ALBUMIN 3.8 G/DL (3.2-5.2); ALKALINE PHOSPHATASE 97 U/L (46-116); ALT/SGPT 29 U/L (7.0-40); AST/SGOT 20 U/L (<34); BILIRUBIN,TOTAL 0.5 MG/DL (0.3-1.2); BLOOD UREA NITROGEN 18 MG/DL (9-23); CALCIUM LEVEL 9.2 MG/DL (8.3-10.6); CARBON DIOXIDE LEVEL 26 MMOL/L (20-31); CHLORIDE LEVEL 107 MMOL/L (98-107); CREATININE FOR GFR 0.77 MG/DL (0.55-1.30); GLOMERULAR FILTRATION RATE > 60.0 (>45); GLUCOSE, FASTING 96 MG/DL (74-106); MAGNESIUM LEVEL 1.8 MG/DL (1.8-2.4); POTASSIUM SERUM 4.3 MMOL/L (3.5-5.1); SODIUM LEVEL 138 MMOL/L (136-145); TOTAL PROTEIN 6.7 G/DL (5.7-8.2)
== END ==
LOC: M RAD 11:09
PROVIDERS: ATTEND Internal Medicine Hematology & Oncology
DX: C34.90 Malignant neoplasm of unspecified part of unspecified bronchus or lung (principal)
CPT/HCPCS: 36415; 70491; 71260; 74177; 80053; 81001; 83735; 85025; Q9963; Q9967

== ENCOUNTER → 2024-03-13 | Outpatient (CLI) | payer OTHER ==
[~2024-03-13] MED LIST changes: -GASTROGRAFIN SOLUTION 30ML As Ordered ONE; -ISOVUE-370 76% 100ML VIAL As Ordered ONE; +VITA200016 PO
== END ==
LOC: M ONCR 08:06
PROVIDERS: ATTEND General Practice
DX: C34.2 Malignant neoplasm of middle lobe, bronchus or lung (principal); C77.1 Secondary and unspecified malignant neoplasm of intrathoracic lymph nodes; M79.621 Pain in right upper arm; Z79.69 Long term (current) use of other immunomodulators and immunosuppressants; Z79.899 Other long term (current) drug therapy; Z87.891 Personal history of nicotine dependence; Z92.3 Personal history of irradiation; Z92.21 Personal history of antineoplastic chemotherapy; Z92.25 Personal history of immunosuppression therapy

== ENCOUNTER 2024-03-26 15:09 | Outpatient (RCR) | payer OTHER ==
[~2024-03-26 15:09] MED LIST changes: -VITA200016 PO
[2024-03-31] MEDS ORDERED: VITA200016 PO (13:15)
== END 2024-04-01 ==
LOC: M PT 15:09
PROVIDERS: ATTEND Family Medicine
DX: M75.31 Calcific tendinitis of right shoulder (principal)

== ENCOUNTER → 2024-03-27 | Outpatient (CLI) | payer OTHER ==
[~2024-03-27] MED LIST changes: +VITA200016 PO
[2024-03-27 08:31] LABS: EOS # 0.3 10^3/uL (0.0-0.5); EOS % 8.5 % (0.0-3.0); HEMATOCRIT 39.5 % (36.0-47.0); HEMOGLOBIN 13.7 g/dl (12.0-15.5); LYMPH # 1.3 10^3/uL (1.5-5.0); LYMPH % 31.8 % (24.0-44.0); MEAN CORPUSCULAR HEMOGLOBIN 34.7 pg (27.0-33.0); MEAN CORPUSCULAR HGB CONC 34.7 g/dl (32.0-36.5); MONO # 0.4 10^3/uL (0.0-0.8); NEUTROPHILS % 48.7 % (36.0-66.0); PLATELET COUNT, AUTOMATED 173 10^3/uL (150-450); RED BLOOD COUNT 3.95 10^6/uL (4.00-5.40)
[2024-03-27 09:04] LABS: ALBUMIN 3.7 G/DL (3.2-5.2); ALKALINE PHOSPHATASE 89 U/L (46-116); ALT/SGPT 27 U/L (7.0-40); AST/SGOT 19 U/L (<34); BILIRUBIN,TOTAL 0.5 MG/DL (0.3-1.2); BLOOD UREA NITROGEN 16 MG/DL (9-23); CARBON DIOXIDE LEVEL 26 MMOL/L (20-31); CHLORIDE LEVEL 109 MMOL/L (98-107); CHOLESTEROL LEVEL 204 MG/DL (<200); CHOLESTEROL RISK RATIO 3.66 (<5); CREATININE FOR GFR 0.77 MG/DL (0.55-1.30); GLOMERULAR FILTRATION RATE > 60.0 (>45); GLUCOSE, FASTING 99 MG/DL (74-106); HDL CHOLESTEROL 55.6 MG/DL (>40); LDL CHOLESTEROL 128.2 MG/DL (<100); NON-HDL-C 148.4 MG/DL; POTASSIUM SERUM 4.3 MMOL/L (3.5-5.1); SODIUM LEVEL 142 MMOL/L (136-145); TOTAL PROTEIN 6.5 G/DL (5.7-8.2); TRIGLYCERIDES LEVEL 101 MG/DL (<150)
[2024-03-27 09:06] LABS: FREE T4 0.94 NG/DL (0.89-1.76)
[2024-03-27 09:07] LABS: THYROID STIMULATING HORMONE 4.445 uIU/ML (0.55-4.78)
[2024-03-27 10:37] LABS: TOTAL 25(OH) VITAMIN D 21.2 NG/ML (20.0-100.0)
== END ==
LOC: M LAB 07:55
PROVIDERS: ATTEND Family Medicine
DX: E03.9 Hypothyroidism, unspecified (principal); E55.9 Vitamin D deficiency, unspecified; Z13.220 Encounter for screening for lipoid disorders; Z13.0 Encounter for screening for diseases of the blood and blood-forming organs and certain disorders involving the immune mechanism

== ENCOUNTER → 2024-03-30 | Outpatient (CLI) | payer OTHER ==
[2024-03-30 10:49] LABS: APPEARANCE, URINE CLEAR (CLEAR); BACTERIA, URINE AUTO NEGATIVE (NEGATIVE); BILIRUBIN, URINE AUTO NEGATIVE (NEGATIVE); BLOOD, URINE BLOOD NEGATIVE (NEGATIVE); COLOR, URINE COLORLESS (YELLOW); GLUCOSE, URINE (UA) AUTO NEGATIVE (NEGATIVE); KETONE, URINE AUTO NEGATIVE (NEGATIVE); LEUKOCYTE ESTERASE, URINE AUTO NEGATIVE (NEGATIVE); NITRITE, URINE AUTO NEGATIVE (NEGATIVE); PROTEIN, URINE AUTO NEGATIVE (NEGATIVE); RBC, URINE AUTO 0 /HPF (0-3); SPECIFIC GRAVITY URINE AUTO 1.004 (1.002-1.035); SQUAMOUS EPITHELIAL CELL UR AU 0 /HPF (0-6); UROBILINOGEN, URINE AUTO 0.2 mg/dL (0.0-2.0); WBC, URINE AUTO 1 /HPF (0-3)
[2024-03-30 10:55] LABS: BASO # 0.1 10^3/uL (0.0-0.2); BASO % 1.1 % (0.0-1.0); EOS # 0.4 10^3/uL (0.0-0.5); EOS % 8.2 % (0.0-3.0); HEMATOCRIT 43.7 % (36.0-47.0); HEMOGLOBIN 14.7 g/dl (12.0-15.5); LYMPH # 1.5 10^3/uL (1.5-5.0); LYMPH % 33.9 % (24.0-44.0); MEAN CORPUSCULAR HEMOGLOBIN 33.7 pg (27.0-33.0); MEAN CORPUSCULAR HGB CONC 33.6 g/dl (32.0-36.5); MEAN CORPUSCULAR VOLUME 100.2 fl (80.0-96.0); MONO # 0.5 10^3/uL (0.0-0.8); NEUTROPHILS # 2.1 10^3/uL (1.5-8.5); NEUTROPHILS % 46.1 % (36.0-66.0); PLATELET COUNT, AUTOMATED 199 10^3/uL (150-450); RED BLOOD COUNT 4.36 10^6/uL (4.00-5.40); WHITE BLOOD COUNT 4.5 10^3/uL (4.0-10.0)
[2024-03-30 11:22] LABS: ALBUMIN 4.3 G/DL (3.2-5.2); ALKALINE PHOSPHATASE 85 U/L (46-116); ALT/SGPT 34 U/L (7.0-40); AST/SGOT 26 U/L (<34); BILIRUBIN,TOTAL 0.6 MG/DL (0.3-1.2); BLOOD UREA NITROGEN 16 MG/DL (9-23); CALCIUM LEVEL 9.5 MG/DL (8.3-10.6); CARBON DIOXIDE LEVEL 29 MMOL/L (20-31); CHLORIDE LEVEL 106 MMOL/L (98-107); CREATININE FOR GFR 0.85 MG/DL (0.55-1.30); GLOMERULAR FILTRATION RATE > 60.0 (>45); GLUCOSE, FASTING 82 MG/DL (74-106); POTASSIUM SERUM 4.5 MMOL/L (3.5-5.1); SODIUM LEVEL 140 MMOL/L (136-145); TOTAL PROTEIN 7.2 G/DL (5.7-8.2)
[2024-03-30 11:23] LABS: FREE T4 0.91 NG/DL (0.89-1.76)
[2024-03-30 12:06] LABS: MAGNESIUM LEVEL 1.9 MG/DL (1.8-2.4)
== END ==
LOC: M LAB 10:06
PROVIDERS: ATTEND Internal Medicine Medical Oncology
DX: C34.90 Malignant neoplasm of unspecified part of unspecified bronchus or lung (principal)

== ENCOUNTER → 2024-04-22 | Outpatient (CLI) | payer OTHER ==
[2024-04-22 10:38] LABS: APPEARANCE, URINE CLEAR (CLEAR); BACTERIA, URINE AUTO NEGATIVE (NEGATIVE); BILIRUBIN, URINE AUTO NEGATIVE (NEGATIVE); BLOOD, URINE BLOOD NEGATIVE (NEGATIVE); COLOR, URINE STRAW (YELLOW); GLUCOSE, URINE (UA) AUTO NEGATIVE (NEGATIVE); KETONE, URINE AUTO NEGATIVE (NEGATIVE); LEUKOCYTE ESTERASE, URINE AUTO TRACE (NEGATIVE); NITRITE, URINE AUTO NEGATIVE (NEGATIVE); PROTEIN, URINE AUTO NEGATIVE (NEGATIVE); RBC, URINE AUTO 1 /HPF (0-3); SPECIFIC GRAVITY URINE AUTO 1.006 (1.002-1.035); SQUAMOUS EPITHELIAL CELL UR AU 0 /HPF (0-6); UROBILINOGEN, URINE AUTO 0.2 mg/dL (0.0-2.0); WBC, URINE AUTO 1 /HPF (0-3)
[2024-04-22 10:40] LABS: BASO # 0.1 10^3/uL (0.0-0.2); BASO % 1.1 % (0.0-1.0); EOS # 0.4 10^3/uL (0.0-0.5); HEMOGLOBIN 14.2 g/dl (12.0-15.5); LYMPH # 1.3 10^3/uL (1.5-5.0); LYMPH % 30.8 % (24.0-44.0); MEAN CORPUSCULAR HEMOGLOBIN 33.9 pg (27.0-33.0); MEAN CORPUSCULAR HGB CONC 34.6 g/dl (32.0-36.5); MEAN CORPUSCULAR VOLUME 97.9 fl (80.0-96.0); MONO # 0.4 10^3/uL (0.0-0.8); MONO % 9.4 % (2.0-8.0); NEUTROPHILS # 2.1 10^3/uL (1.5-8.5); NEUTROPHILS % 48.8 % (36.0-66.0); PLATELET COUNT, AUTOMATED 184 10^3/uL (150-450); RED BLOOD COUNT 4.19 10^6/uL (4.00-5.40); WHITE BLOOD COUNT 4.4 10^3/uL (4.0-10.0)
[2024-04-22 11:07] LABS: ALKALINE PHOSPHATASE 79 U/L (46-116); ALT/SGPT 35 U/L (7.0-40); AST/SGOT 27 U/L (<34); BILIRUBIN,TOTAL 0.5 MG/DL (0.3-1.2); BLOOD UREA NITROGEN 14 MG/DL (9-23); CALCIUM LEVEL 9.2 MG/DL (8.3-10.6); CARBON DIOXIDE LEVEL 27 MMOL/L (20-31); CHLORIDE LEVEL 109 MMOL/L (98-107); GLOMERULAR FILTRATION RATE > 60.0 (>45); GLUCOSE, FASTING 93 MG/DL (74-106); MAGNESIUM LEVEL 1.9 MG/DL (1.8-2.4); POTASSIUM SERUM 4.5 MMOL/L (3.5-5.1); SODIUM LEVEL 138 MMOL/L (136-145); TOTAL PROTEIN 6.9 G/DL (5.7-8.2)
[2024-04-22 11:10] LABS: FREE T4 1.05 NG/DL (0.89-1.76)
== END ==
LOC: M LAB 09:22
PROVIDERS: ATTEND Internal Medicine Medical Oncology
DX: C34.2 Malignant neoplasm of middle lobe, bronchus or lung (principal)

== ENCOUNTER 2024-04-29 14:21 | Outpatient (RCR) | payer OTHER | END 2024-05-02 | LOC: M PT 14:21 | PROVIDERS: ATTEND Family Medicine | DX: M75.31 Calcific tendinitis of right shoulder (principal) ==

== ENCOUNTER 2024-05-06 10:41 | Outpatient (RCR) | payer OTHER | END 2024-06-01 | LOC: M PT 10:41 | PROVIDERS: ATTEND Family Medicine | DX: M75.31 Calcific tendinitis of right shoulder (principal) ==

== ENCOUNTER → 2024-05-12 | Outpatient (CLI) | payer OTHER ==
[2024-05-12 15:27] LABS: APPEARANCE, URINE CLEAR (CLEAR); BACTERIA, URINE AUTO NEGATIVE (NEGATIVE); BILIRUBIN, URINE AUTO NEGATIVE (NEGATIVE); BLOOD, URINE BLOOD NEGATIVE (NEGATIVE); COLOR, URINE STRAW (YELLOW); GLUCOSE, URINE (UA) AUTO NEGATIVE (NEGATIVE); KETONE, URINE AUTO NEGATIVE (NEGATIVE); LEUKOCYTE ESTERASE, URINE AUTO 2+ (NEGATIVE); NITRITE, URINE AUTO NEGATIVE (NEGATIVE); PROTEIN, URINE AUTO 1+ mg/dL (NEGATIVE); RBC, URINE AUTO 0 /HPF (0-3); SPECIFIC GRAVITY URINE AUTO 1.003 (1.002-1.035); SQUAMOUS EPITHELIAL CELL UR AU 0 /HPF (0-6); UROBILINOGEN, URINE AUTO 0.2 mg/dL (0.0-2.0); WBC, URINE AUTO 0 /HPF (0-3)
[2024-05-12 15:28] LABS: BASO # 0.1 10^3/uL (0.0-0.2); BASO % 0.9 % (0.0-1.0); EOS # 0.3 10^3/uL (0.0-0.5); EOS % 5.3 % (0.0-3.0); HEMATOCRIT 40.9 % (36.0-47.0); HEMOGLOBIN 14.2 g/dl (12.0-15.5); LYMPH # 1.8 10^3/uL (1.5-5.0); LYMPH % 33.1 % (24.0-44.0); MEAN CORPUSCULAR HGB CONC 34.7 g/dl (32.0-36.5); MEAN CORPUSCULAR VOLUME 97.8 fl (80.0-96.0); MONO # 0.6 10^3/uL (0.0-0.8); MONO % 11.2 % (2.0-8.0); NEUTROPHILS # 2.7 10^3/uL (1.5-8.5); PLATELET COUNT, AUTOMATED 195 10^3/uL (150-450); RED BLOOD COUNT 4.18 10^6/uL (4.00-5.40); WHITE BLOOD COUNT 5.5 10^3/uL (4.0-10.0)
[2024-05-12 15:58] LABS: ALBUMIN 4.1 G/DL (3.2-5.2); ALKALINE PHOSPHATASE 89 U/L (46-116); ALT/SGPT 26 U/L (7.0-40); AST/SGOT 15 U/L (<34); BILIRUBIN,TOTAL 0.5 MG/DL (0.3-1.2); BLOOD UREA NITROGEN 14 MG/DL (9-23); CALCIUM LEVEL 9.2 MG/DL (8.3-10.6); CARBON DIOXIDE LEVEL 28 MMOL/L (20-31); CHLORIDE LEVEL 106 MMOL/L (98-107); CREATININE FOR GFR 0.88 MG/DL (0.55-1.30); GLOMERULAR FILTRATION RATE > 60.0 (>45); GLUCOSE, FASTING 86 MG/DL (74-106); MAGNESIUM LEVEL 1.9 MG/DL (1.8-2.4); POTASSIUM SERUM 4.1 MMOL/L (3.5-5.1); SODIUM LEVEL 139 MMOL/L (136-145); TOTAL PROTEIN 7.1 G/DL (5.7-8.2)
[2024-05-12 16:00] LABS: CARCINOEMBRYONIC ANTIGEN < 2.0 NG/ML (<2.5)
== END ==
LOC: M LAB 14:54
PROVIDERS: ATTEND Internal Medicine Hematology & Oncology
DX: C34.90 Malignant neoplasm of unspecified part of unspecified bronchus or lung (principal)

== ENCOUNTER → 2024-06-23 | Outpatient (CLI) | payer OTHER ==
[2024-06-23 09:42] LABS: APPEARANCE, URINE CLEAR (CLEAR); BACTERIA, URINE AUTO NEGATIVE (NEGATIVE); BILIRUBIN, URINE AUTO NEGATIVE (NEGATIVE); BLOOD, URINE BLOOD NEGATIVE (NEGATIVE); COLOR, URINE STRAW (YELLOW); GLUCOSE, URINE (UA) AUTO NEGATIVE (NEGATIVE); KETONE, URINE AUTO NEGATIVE (NEGATIVE); LEUKOCYTE ESTERASE, URINE AUTO NEGATIVE (NEGATIVE); NITRITE, URINE AUTO NEGATIVE (NEGATIVE); PROTEIN, URINE AUTO 1+ mg/dL (NEGATIVE); RBC, URINE AUTO 0 /HPF (0-3); SQUAMOUS EPITHELIAL CELL UR AU 1 /HPF (0-6); UROBILINOGEN, URINE AUTO 0.2 mg/dL (0.0-2.0); WBC, URINE AUTO 0 /HPF (0-3)
[2024-06-23 10:39] LABS: ALBUMIN 4.1 G/DL (3.2-5.2); ALKALINE PHOSPHATASE 100 U/L (46-116); ALT/SGPT 21 U/L (7.0-40); AST/SGOT 17 U/L (<34); BILIRUBIN,TOTAL 0.6 MG/DL (0.3-1.2); BLOOD UREA NITROGEN 20 MG/DL (9-23); CALCIUM LEVEL 9.7 MG/DL (8.3-10.6); CARBON DIOXIDE LEVEL 30 MMOL/L (20-31); CHLORIDE LEVEL 105 MMOL/L (98-107); CREATININE FOR GFR 0.94 MG/DL (0.55-1.30); GLOMERULAR FILTRATION RATE > 60.0 (>45); GLUCOSE, FASTING 101 MG/DL (74-106); MAGNESIUM LEVEL 1.8 MG/DL (1.8-2.4); POTASSIUM SERUM 4.2 MMOL/L (3.5-5.1); SODIUM LEVEL 140 MMOL/L (136-145); TOTAL PROTEIN 7.7 G/DL (5.7-8.2)
[2024-06-23 10:44] LABS: BASO # 0.1 10^3/uL (0.0-0.2); EOS # 0.4 10^3/uL (0.0-0.5); EOS % 6.9 % (0.0-3.0); HEMATOCRIT 43.1 % (36.0-47.0); HEMOGLOBIN 14.6 g/dl (12.0-15.5); LYMPH # 1.6 10^3/uL (1.5-5.0); LYMPH % 27.8 % (24.0-44.0); MEAN CORPUSCULAR HGB CONC 33.9 g/dl (32.0-36.5); MEAN CORPUSCULAR VOLUME 100.2 fl (80.0-96.0); MONO # 0.5 10^3/uL (0.0-0.8); NEUTROPHILS # 3.1 10^3/uL (1.5-8.5); NEUTROPHILS % 53.9 % (36.0-66.0); PLATELET COUNT, AUTOMATED 226 10^3/uL (150-450); WHITE BLOOD COUNT 5.8 10^3/uL (4.0-10.0)
== END ==
LOC: M LAB 09:02
PROVIDERS: ATTEND Internal Medicine Medical Oncology
DX: C34.90 Malignant neoplasm of unspecified part of unspecified bronchus or lung (principal)

== ENCOUNTER 2024-06-29 18:20 | Emergency (ER) | payer OTHER ==
[~2024-06-29 18:20] MED LIST changes: -GASTROGRAFIN SOLUTION 30ML As Ordered ONE; -ISOVUE-370 76% 100ML VIAL As Ordered ONE
[2024-06-29] MEDS: NORCO 5/325MG TABLET (HOME DOSE PACK) PO ONE (22:15)
[2024-06-29 22:48] VITALS: BP 124/74; TEMP 98.9; O2SAT 98
== END 2024-06-29 22:49 | disposition home or self-care (01) ==
LOC: M ED 18:20
DX: S82.65XA Nondisplaced fracture of lateral malleolus of left fibula, initial encounter for closed fracture (principal); X50.1XXA Overexertion from prolonged static or awkward postures, initial encounter; Y92.009 Unspecified place in unspecified non-institutional (private) residence as the place of occurrence of the external cause; Y93.01 Activity, walking, marching and hiking; Y99.9 Unspecified external cause status; C78.00 Secondary malignant neoplasm of unspecified lung; Z79.899 Other long term (current) drug therapy
CPT/HCPCS: 29515; 70491; 71260; 73610; 74177; 99284; Q9963; Q9967

== ENCOUNTER → 2024-06-29 | Outpatient (CLI) | payer OTHER ==
[~2024-06-29] MED LIST changes: +GASTROGRAFIN SOLUTION 30ML As Ordered ONE; +ISOVUE-370 76% 100ML VIAL As Ordered ONE
== END ==
LOC: M RAD 14:20
PROVIDERS: ATTEND Internal Medicine Hematology & Oncology
DX: C34.91 Malignant neoplasm of unspecified part of right bronchus or lung (principal)
CPT/HCPCS: 70491; 71260; 74177; Q9963; Q9967

== ENCOUNTER → 2024-07-14 | Outpatient (CLI) | payer OTHER ==
[2024-07-14 16:02] LABS: BASO # 0.1 10^3/uL (0.0-0.2); BASO % 0.8 % (0.0-1.0); EOS # 0.7 10^3/uL (0.0-0.5); EOS % 7.4 % (0.0-3.0); HEMOGLOBIN 14.5 g/dl (12.0-15.5); LYMPH # 2.4 10^3/uL (1.5-5.0); LYMPH % 26.3 % (24.0-44.0); MEAN CORPUSCULAR HGB CONC 34.5 g/dl (32.0-36.5); MEAN CORPUSCULAR VOLUME 98.4 fl (80.0-96.0); MONO # 0.8 10^3/uL (0.0-0.8); MONO % 8.4 % (2.0-8.0); NEUTROPHILS # 5.1 10^3/uL (1.5-8.5); NEUTROPHILS % 56.7 % (36.0-66.0); PLATELET COUNT, AUTOMATED 250 10^3/uL (150-450); RED BLOOD COUNT 4.27 10^6/uL (4.00-5.40); WHITE BLOOD COUNT 9.1 10^3/uL (4.0-10.0)
[2024-07-14 16:06] LABS: APPEARANCE, URINE CLEAR (CLEAR); BACTERIA, URINE AUTO NEGATIVE (NEGATIVE); BILIRUBIN, URINE AUTO NEGATIVE (NEGATIVE); BLOOD, URINE BLOOD NEGATIVE (NEGATIVE); COLOR, URINE YELLOW (YELLOW); GLUCOSE, URINE (UA) AUTO NEGATIVE (NEGATIVE); KETONE, URINE AUTO NEGATIVE (NEGATIVE); LEUKOCYTE ESTERASE, URINE AUTO TRACE (NEGATIVE); NITRITE, URINE AUTO NEGATIVE (NEGATIVE); PROTEIN, URINE AUTO 1+ mg/dL (NEGATIVE); RBC, URINE AUTO 0 /HPF (0-3); SPECIFIC GRAVITY URINE AUTO 1.012 (1.002-1.035); SQUAMOUS EPITHELIAL CELL UR AU 1 /HPF (0-6); UROBILINOGEN, URINE AUTO 0.2 mg/dL (0.0-2.0); WBC, URINE AUTO 1 /HPF (0-3)
[2024-07-14 16:29] LABS: ALBUMIN 4.1 G/DL (3.2-5.2); ALKALINE PHOSPHATASE 90 U/L (35-104); ALT/SGPT 17 U/L (7.0-40); AST/SGOT 14 U/L (<34); BILIRUBIN,TOTAL 0.7 MG/DL (0.3-1.2); BLOOD UREA NITROGEN 21 MG/DL (9-23); CALCIUM LEVEL 9.6 MG/DL (8.3-10.6); CARBON DIOXIDE LEVEL 28 MMOL/L (20-31); CHLORIDE LEVEL 105 MMOL/L (98-107); CREATININE FOR GFR 0.97 MG/DL (0.55-1.30); GLOMERULAR FILTRATION RATE > 60.0 (>45); GLUCOSE, FASTING 101 MG/DL (74-106); POTASSIUM SERUM 4.2 MMOL/L (3.5-5.1); SODIUM LEVEL 139 MMOL/L (136-145); TOTAL PROTEIN 7.7 G/DL (5.7-8.2)
== END ==
LOC: M LAB 15:30
PROVIDERS: ATTEND Internal Medicine Hematology & Oncology
DX: C34.90 Malignant neoplasm of unspecified part of unspecified bronchus or lung (principal)

== ENCOUNTER → 2024-07-20 | Outpatient (CLI) | payer OTHER | LOC: M PLARAD 11:04 | PROVIDERS: ATTEND Internal Medicine Hematology & Oncology | DX: C34.91 Malignant neoplasm of unspecified part of right bronchus or lung (principal) | CPT/HCPCS: 78815; A9552 ==

== ENCOUNTER 2024-07-28 10:02 | Outpatient (RCR) | payer OTHER ==
[2024-08-05] MEDS ORDERED: TAFI75CA2 PO (17:09)
[2024-08-05] MEDS ORDERED: MEKI2TAB2 PO (17:09)
== END 2024-08-01 ==
LOC: M PT 10:02
PROVIDERS: ATTEND Orthopaedic Surgery
DX: S82.832A Other fracture of upper and lower end of left fibula, initial encounter for closed fracture (principal); X58.XXXA Exposure to other specified factors, initial encounter; Y92.9 Unspecified place or not applicable; Y93.9 Activity, unspecified; Y99.9 Unspecified external cause status

== ENCOUNTER → 2024-07-29 | Outpatient (CLI) | payer OTHER ==
[~2024-07-29] MED LIST changes: +MEKI2TAB2 PO; +TAFI75CA2 PO
== END ==
LOC: M SOG 08:00
PROVIDERS: ATTEND Physician Assistant
DX: S82.832D Other fracture of upper and lower end of left fibula, subsequent encounter for closed fracture with routine healing (principal)

== ENCOUNTER → 2024-08-04 | Outpatient (CLI) | payer OTHER ==
[2024-08-04 11:49] LABS: BASO % 0.5 % (0.0-1.0); EOS # 0.4 10^3/uL (0.0-0.5); EOS % 7.7 % (0.0-3.0); HEMATOCRIT 41.8 % (36.0-47.0); LYMPH # 1.6 10^3/uL (1.5-5.0); LYMPH % 28.2 % (24.0-44.0); MEAN CORPUSCULAR HEMOGLOBIN 33.4 pg (27.0-33.0); MEAN CORPUSCULAR HGB CONC 33.5 g/dl (32.0-36.5); MEAN CORPUSCULAR VOLUME 99.8 fl (80.0-96.0); MONO # 0.5 10^3/uL (0.0-0.8); NEUTROPHILS # 3.1 10^3/uL (1.5-8.5); NEUTROPHILS % 54.4 % (36.0-66.0); PLATELET COUNT, AUTOMATED 198 10^3/uL (150-450); RED BLOOD COUNT 4.19 10^6/uL (4.00-5.40); WHITE BLOOD COUNT 5.8 10^3/uL (4.0-10.0)
[2024-08-04 11:51] LABS: APPEARANCE, URINE CLEAR (CLEAR); BACTERIA, URINE AUTO NEGATIVE (NEGATIVE); BILIRUBIN, URINE AUTO NEGATIVE (NEGATIVE); BLOOD, URINE BLOOD NEGATIVE (NEGATIVE); COLOR, URINE YELLOW (YELLOW); GLUCOSE, URINE (UA) AUTO NEGATIVE (NEGATIVE); KETONE, URINE AUTO NEGATIVE (NEGATIVE); LEUKOCYTE ESTERASE, URINE AUTO NEGATIVE (NEGATIVE); NITRITE, URINE AUTO NEGATIVE (NEGATIVE); PROTEIN, URINE AUTO 1+ mg/dL (NEGATIVE); RBC, URINE AUTO 0 /HPF (0-3); SPECIFIC GRAVITY URINE AUTO 1.009 (1.002-1.035); SQUAMOUS EPITHELIAL CELL UR AU 0 /HPF (0-6); UROBILINOGEN, URINE AUTO 0.2 mg/dL (0.0-2.0); WBC, URINE AUTO 0 /HPF (0-3)
[2024-08-04 12:29] LABS: ALBUMIN 3.8 G/DL (3.2-5.2); ALKALINE PHOSPHATASE 91 U/L (35-104); ALT/SGPT 18 U/L (7.0-40); AST/SGOT 15 U/L (<34); BILIRUBIN,TOTAL 0.5 MG/DL (0.3-1.2); BLOOD UREA NITROGEN 16 MG/DL (9-23); CALCIUM LEVEL 9.7 MG/DL (8.3-10.6); CARBON DIOXIDE LEVEL 30 MMOL/L (20-31); CHLORIDE LEVEL 106 MMOL/L (98-107); CREATININE FOR GFR 0.89 MG/DL (0.55-1.30); GLOMERULAR FILTRATION RATE > 60.0 (>45); GLUCOSE, FASTING 94 MG/DL (74-106); POTASSIUM SERUM 4.3 MMOL/L (3.5-5.1); SODIUM LEVEL 141 MMOL/L (136-145)
== END ==
LOC: M LAB 11:28
PROVIDERS: ATTEND Internal Medicine Medical Oncology
DX: C34.90 Malignant neoplasm of unspecified part of unspecified bronchus or lung (principal)

== ENCOUNTER 2024-08-31 09:51 | Outpatient (RCR) | payer MEDICARE, OTHER ==
[~2024-08-31 09:51] MED LIST changes: -[UNRECOGNIZED DRUG - CODE] PO
== END 2024-09-01 ==
LOC: M PT 09:51
PROVIDERS: ATTEND Orthopaedic Surgery
DX: S82.832A Other fracture of upper and lower end of left fibula, initial encounter for closed fracture (principal); W18.30XA Fall on same level, unspecified, initial encounter; Y92.009 Unspecified place in unspecified non-institutional (private) residence as the place of occurrence of the external cause

== ENCOUNTER → 2024-08-31 | Outpatient (CLI) | payer MEDICARE, OTHER ==
[~2024-08-31] MED LIST changes: +[UNRECOGNIZED DRUG - CODE] PO
[2024-08-31 11:53] LABS: BASO # 0.1 10^3/uL (0.0-0.2); BASO % 0.9 % (0.0-1.0); EOS # 0.3 10^3/uL (0.0-0.5); EOS % 5.3 % (0.0-3.0); HEMATOCRIT 41.9 % (36.0-47.0); HEMOGLOBIN 14.4 g/dl (12.0-15.5); LYMPH # 1.4 10^3/uL (1.5-5.0); LYMPH % 25.9 % (24.0-44.0); MEAN CORPUSCULAR HEMOGLOBIN 33.6 pg (27.0-33.0); MEAN CORPUSCULAR HGB CONC 34.4 g/dl (32.0-36.5); MEAN CORPUSCULAR VOLUME 97.7 fl (80.0-96.0); MONO # 0.6 10^3/uL (0.0-0.8); MONO % 11.4 % (2.0-8.0); NEUTROPHILS # 3.1 10^3/uL (1.5-8.5); PLATELET COUNT, AUTOMATED 189 10^3/uL (150-450); RED BLOOD COUNT 4.29 10^6/uL (4.00-5.40); WHITE BLOOD COUNT 5.5 10^3/uL (4.0-10.0)
[2024-08-31 12:25] LABS: ALBUMIN 3.2 G/DL (3.2-5.2); ALKALINE PHOSPHATASE 144 U/L (35-104); ALT/SGPT 26 U/L (7.0-40); AST/SGOT 27 U/L (<34); BILIRUBIN,TOTAL 0.4 MG/DL (0.3-1.2); BLOOD UREA NITROGEN 20 MG/DL (9-23); CALCIUM LEVEL 9.1 MG/DL (8.3-10.6); CARBON DIOXIDE LEVEL 29 MMOL/L (20-31); CHLORIDE LEVEL 104 MMOL/L (98-107); CREATININE FOR GFR 0.83 MG/DL (0.55-1.30); GLOMERULAR FILTRATION RATE > 60.0 (>45); GLUCOSE, FASTING 88 MG/DL (74-106); MAGNESIUM LEVEL 1.8 MG/DL (1.8-2.4); POTASSIUM SERUM 4.5 MMOL/L (3.5-5.1); SODIUM LEVEL 138 MMOL/L (136-145); TOTAL PROTEIN 6.5 G/DL (5.7-8.2)
== END ==
LOC: M LAB 10:31
PROVIDERS: ATTEND Internal Medicine Medical Oncology
DX: C34.90 Malignant neoplasm of unspecified part of unspecified bronchus or lung (principal)

== ENCOUNTER → 2024-09-11 | Outpatient (CLI) | payer MEDICARE, OTHER | LOC: M ONCR 07:49 | PROVIDERS: ATTEND General Practice | DX: C34.2 Malignant neoplasm of middle lobe, bronchus or lung (principal); C77.0 Secondary and unspecified malignant neoplasm of lymph nodes of head, face and neck; Z87.891 Personal history of nicotine dependence; Z92.3 Personal history of irradiation; Z92.21 Personal history of antineoplastic chemotherapy; Z92.29 Personal history of other drug therapy; Z79.622 Long term (current) use of Janus kinase inhibitor; Z79.890 Hormone replacement therapy; Z79.899 Other long term (current) drug therapy ==

== ENCOUNTER → 2024-09-16 | Outpatient (CLI) | payer OTHER | LOC: M SOG 09:55 | PROVIDERS: ATTEND Orthopaedic Surgery | DX: S82.832D Other fracture of upper and lower end of left fibula, subsequent encounter for closed fracture with routine healing (principal) ==

== ENCOUNTER → 2024-09-23 | Outpatient (CLI) | payer MEDICARE ==
[~2024-09-23] MED LIST changes: +PROHANCE 279.3MG/ML 15ML VIAL As Ordered ONE
== END ==
LOC: M RAD 10:38
PROVIDERS: ATTEND Internal Medicine Medical Oncology
DX: C34.91 Malignant neoplasm of unspecified part of right bronchus or lung (principal); R51.9 Headache, unspecified; R90.82 White matter disease, unspecified
CPT/HCPCS: 70553; A9576

== ENCOUNTER → 2024-10-13 | Outpatient (CLI) | payer MEDICARE, OTHER ==
[~2024-10-13] MED LIST changes: -PROHANCE 279.3MG/ML 15ML VIAL As Ordered ONE; +[UNRECOGNIZED DRUG - CODE] PO
== END ==
LOC: M ONCR 12:58
PROVIDERS: ATTEND General Practice
DX: C34.2 Malignant neoplasm of middle lobe, bronchus or lung (principal); R21 Rash and other nonspecific skin eruption; Z87.891 Personal history of nicotine dependence; Z92.3 Personal history of irradiation; Z92.21 Personal history of antineoplastic chemotherapy; Z79.890 Hormone replacement therapy; Z79.899 Other long term (current) drug therapy; Z79.622 Long term (current) use of Janus kinase inhibitor

== ENCOUNTER → 2024-10-20 | Outpatient (CLI) | payer MEDICARE, OTHER | LOC: M ONCM 13:39 | PROVIDERS: ATTEND Dietitian, Registered | DX: C34.90 Malignant neoplasm of unspecified part of unspecified bronchus or lung (principal); Z71.3 Dietary counseling and surveillance; Z68.26 Body mass index [BMI] 26.0-26.9, adult ==

== ENCOUNTER → 2024-10-28 | Outpatient (CLI) | payer MEDICARE, OTHER ==
[~2024-10-28] MED LIST changes: +ISOVUE-370 76% 100ML VIAL As Ordered ONE
== END ==
LOC: M RAD 11:05
PROVIDERS: ATTEND Internal Medicine Medical Oncology
DX: C34.01 Malignant neoplasm of right main bronchus (principal); J90 Pleural effusion, not elsewhere classified
CPT/HCPCS: 70491; 71260; 74177; Q9967

== ENCOUNTER → 2024-11-20 | Outpatient (CLI) | payer MEDICARE, OTHER ==
[~2024-11-20] MED LIST changes: -ISOVUE-370 76% 100ML VIAL As Ordered ONE
[2024-11-20 11:21] LABS: BASO # 0.1 10^3/uL (0.0-0.2); BASO % 1.1 % (0.0-1.0); EOS # 0.4 10^3/uL (0.0-0.5); HEMATOCRIT 40.9 % (36.0-47.0); HEMOGLOBIN 13.8 g/dl (12.0-15.5); LYMPH # 1.7 10^3/uL (1.5-5.0); LYMPH % 32.1 % (24.0-44.0); MEAN CORPUSCULAR HEMOGLOBIN 33.5 pg (27.0-33.0); MEAN CORPUSCULAR HGB CONC 33.7 g/dl (32.0-36.5); MEAN CORPUSCULAR VOLUME 99.3 fl (80.0-96.0); MONO # 0.5 10^3/uL (0.0-0.8); MONO % 8.9 % (2.0-8.0); NEUTROPHILS # 2.6 10^3/uL (1.5-8.5); NEUTROPHILS % 49.8 % (36.0-66.0); PLATELET COUNT, AUTOMATED 208 10^3/uL (150-450); RED BLOOD COUNT 4.12 10^6/uL (4.00-5.40); WHITE BLOOD COUNT 5.3 10^3/uL (4.0-10.0)
[2024-11-20 12:06] LABS: ALBUMIN 3.3 G/DL (3.2-5.2); ALKALINE PHOSPHATASE 133 U/L (35-104); ALT/SGPT 30 U/L (7.0-40); AST/SGOT 30 U/L (<34); BILIRUBIN,TOTAL 0.4 MG/DL (0.3-1.2); BLOOD UREA NITROGEN 16 MG/DL (9-23); CALCIUM LEVEL 9.1 MG/DL (8.3-10.6); CARBON DIOXIDE LEVEL 31 MMOL/L (20-31); CHLORIDE LEVEL 105 MMOL/L (98-107); CREATININE FOR GFR 0.91 MG/DL (0.55-1.30); GLOMERULAR FILTRATION RATE > 60.0 (>45); GLUCOSE, FASTING 89 MG/DL (74-106); POTASSIUM SERUM 4.4 MMOL/L (3.5-5.1); SODIUM LEVEL 142 MMOL/L (136-145); TOTAL PROTEIN 6.4 G/DL (5.7-8.2)
[2024-11-20 12:07] LABS: FREE T4 0.84 NG/DL (0.89-1.76); THYROID STIMULATING HORMONE 2.822 uIU/ML (0.55-4.78)
[2024-11-20 12:08] LABS: FREE T3 3.2 PG/ML (2.3-4.2)
== END ==
LOC: M LAB 10:46
PROVIDERS: ATTEND Internal Medicine Medical Oncology
DX: C34.2 Malignant neoplasm of middle lobe, bronchus or lung (principal); Z79.899 Other long term (current) drug therapy

== ENCOUNTER → 2024-12-14 | Outpatient (CLI) | payer MEDICARE, OTHER ==
[2024-12-14 11:34] LABS: BASO # 0.1 10^3/uL (0.0-0.2); BASO % 0.9 % (0.0-1.0); EOS # 0.3 10^3/uL (0.0-0.5); EOS % 5.2 % (0.0-3.0); HEMATOCRIT 41.4 % (36.0-47.0); HEMOGLOBIN 13.6 g/dl (12.0-15.5); LYMPH # 1.9 10^3/uL (1.5-5.0); LYMPH % 34.9 % (24.0-44.0); MEAN CORPUSCULAR HEMOGLOBIN 32.5 pg (27.0-33.0); MEAN CORPUSCULAR HGB CONC 32.9 g/dl (32.0-36.5); MEAN CORPUSCULAR VOLUME 98.8 fl (80.0-96.0); MONO # 0.5 10^3/uL (0.0-0.8); MONO % 10.1 % (2.0-8.0); NEUTROPHILS # 2.5 10^3/uL (1.5-8.5); NEUTROPHILS % 47.4 % (36.0-66.0); PLATELET COUNT, AUTOMATED 247 10^3/uL (150-450); RED BLOOD COUNT 4.19 10^6/uL (4.00-5.40); WHITE BLOOD COUNT 5.4 10^3/uL (4.0-10.0)
[2024-12-14 12:05] LABS: ALBUMIN 3.2 G/DL (3.2-5.2); BILIRUBIN,TOTAL 0.4 MG/DL (0.3-1.2); CALCIUM LEVEL 9.1 MG/DL (8.3-10.6); CREATININE FOR GFR 0.84 MG/DL (0.55-1.30); POTASSIUM SERUM 4.3 MMOL/L (3.5-5.1); TOTAL PROTEIN 6.6 G/DL (5.7-8.2)
[2024-12-14 12:07] LABS: THYROID STIMULATING HORMONE 2.604 uIU/ML (0.55-4.78)
== END ==
LOC: M LAB 10:35
PROVIDERS: ATTEND Internal Medicine Medical Oncology
DX: C34.90 Malignant neoplasm of unspecified part of unspecified bronchus or lung (principal); E07.9 Disorder of thyroid, unspecified

== ENCOUNTER → 2025-04-12 | Outpatient (CLI) | payer MEDICARE, OTHER ==
[~2025-04-12] MED LIST changes: +ISOVUE-370 76% 100 ML VIAL As Ordered ONE; +LEVO1TAB38; +PHEN1TAB73; +PRED50TA57 PO
== END ==
LOC: M RAD 10:17
PROVIDERS: ATTEND Internal Medicine Medical Oncology
DX: C34.2 Malignant neoplasm of middle lobe, bronchus or lung (principal); J47.9 Bronchiectasis, uncomplicated
CPT/HCPCS: 71260; 74177; Q9967

== ENCOUNTER → 2025-04-21 | Outpatient (CLI) | payer MEDICARE, OTHER ==
[~2025-04-21] MED LIST changes: -ISOVUE-370 76% 100 ML VIAL As Ordered ONE
[2025-04-21 08:40] LABS: BASO # 0.1 10^3/uL (0.0-0.2); BASO % 1.0 % (0.0-1.0); EOS # 0.3 10^3/uL (0.0-0.5); EOS % 5.2 % (0.0-3.0); LYMPH # 1.8 10^3/uL (1.5-5.0); LYMPH % 35.7 % (24.0-44.0); MONO # 0.5 10^3/uL (0.0-0.8); MONO % 9.5 % (2.0-8.0); NEUTROPHILS # 2.4 10^3/uL (1.5-8.5); NEUTROPHILS % 46.3 % (36.0-66.0); PLATELET COUNT, AUTOMATED 245 10^3/uL (150-450)
[2025-04-21 09:06] LABS: ALT/SGPT 25.0 U/L (7.0-40); AST/SGOT 31.0 U/L (<34); CALCIUM LEVEL 9.7 MG/DL (8.3-10.6); CARBON DIOXIDE LEVEL 31.0 MMOL/L (20-31); CHLORIDE LEVEL 106.0 MMOL/L (98-107); CREATININE FOR GFR 0.88 MG/DL (0.55-1.30); GLOMERULAR FILTRATION RATE 74.3 (>45); POTASSIUM SERUM 4.3 MMOL/L (3.5-5.1); SODIUM LEVEL 144.0 MMOL/L (136-145)
[2025-04-21 09:24] LABS: INR 0.93
== END ==
LOC: M LAB 08:17
PROVIDERS: ATTEND Internal Medicine Medical Oncology
DX: C34.90 Malignant neoplasm of unspecified part of unspecified bronchus or lung (principal)

== ENCOUNTER → 2025-06-15 | Outpatient (CLI) | payer MEDICARE | LOC: M WHC 12:03 | PROVIDERS: ATTEND Family Medicine | DX: Z12.31 Encounter for screening mammogram for malignant neoplasm of breast (principal) ==

== ENCOUNTER → 2025-08-03 | Outpatient (CLI) | payer MEDICARE ==
[~2025-08-03] MED LIST changes: +ALL10TAB PO; +AUGM500T34 PO; +ISOVUE-370 76% 100 ML VIAL As Ordered ONE
== END ==
LOC: M RAD 12:04
PROVIDERS: ATTEND Internal Medicine Medical Oncology
DX: C34.90 Malignant neoplasm of unspecified part of unspecified bronchus or lung (principal)
CPT/HCPCS: 70491; 71260; 74177; Q9967

== ENCOUNTER → 2025-08-04 | Outpatient (CLI) | payer MEDICARE ==
[~2025-08-04] MED LIST changes: -ISOVUE-370 76% 100 ML VIAL As Ordered ONE
== END ==
LOC: M ONCR 09:46
PROVIDERS: ATTEND General Practice
DX: C34.2 Malignant neoplasm of middle lobe, bronchus or lung (principal); C77.1 Secondary and unspecified malignant neoplasm of intrathoracic lymph nodes; Z79.620 Long term (current) use of immunosuppressive biologic; Z79.899 Other long term (current) drug therapy; Z87.891 Personal history of nicotine dependence; Z92.21 Personal history of antineoplastic chemotherapy; Z92.3 Personal history of irradiation